=== PATIENT | female | born 1965 | race Caucasian/White ===

== ENCOUNTER 2021-10-11 19:35 | Emergency (ER) | payer OTHER, SELFPAY ==
[2021-10-11 19:47] VITALS: BP 143/79; PULSE 87; RESP 18; TEMP 36.8; O2SAT 98
--- NOTE | 2021-10-11 19:59 | ED.URI ---
HPI - URI/Sore Throat General Chief Complaint: Upper Respiratory Infection Stated Complaint: cough,sorethroat Time Seen by Provider: 10/11/21 19:51 Source: patient and RN notes reviewed Mode of arrival: ambulatory Limitations: no limitations History of Present Illness HPI Narrative: Patient presents today complaining of hoarseness, rhinorrhea, mildly productive cough, and eye watering and slight itch. Cough began yesterday. The hoarseness and rhinorrhea started this morning. 4 days ago, patient had a sore throat and body aches, but these have since resolved. Denies shortness of breath or fever. Denies history of asthma, COPD, seasonal allergies. She took 1 dose of NyQuil today prior to arrival, which did help her rest. MD elicited complaint: cough and rhinorrhea Related Data Home Medications Medication Instructions Recorded Confirmed Effexor 10/11/21 Januvia 10/11/21 Jardiance 10/11/21 Synthroid 10/11/21 atorvastatin 10/11/21 losartan 10/11/21 Allergies Allergy/AdvReac Type Severity Reaction Status Date / Time lisinopril AdvReac Cough Verified 10/11/21 19:52 Review of Systems Review of Systems: CONSTITUTIONAL: Denies body aches, fever, chills, or sweats. EYES: Denies visual changes, redness, or discharge.+ Eye watering and itching ENT: Denies congestion, sore throat, or otalgia.+ Rhinorrhea, hoarseness CARDIOVASCULAR: Denies chest pain, palpitations, or edema. RESPIRATORY: Denies dyspnea.+ Cough GASTROINTESTINAL: Denies abdominal pain, nausea, vomiting, or diarrhea. GENITOURINARY: Denies dysuria or hematuria. SKIN: Denies rash, itching, or wounds. MUSCULOSKELETAL: Denies back pain, joint pain, or myalgia. NEUROLOGIC: Denies headache, numbness, tingling, or weakness. PSYCH: Denies depression or anxiety. [facility] Past Medical History Medical History (Updated 10/11/21 @ 20:04 by Bhakti Ceja, TENDER COORDINATOR, ) Diabetes Hypothyroidism Comments At time of signature, I have reviewed and agree with nursing past medical, surgical, social and family history unless otherwise noted. Please see nursing chart for further information. There is no relevant family history pertinent to the presenting complaint Exam Narrative: GENERAL: Well-appearing, well-nourished, and in no acute distress. HEAD: Normocephalic, atraumatic. EYES: EOMI. No redness or drainage. Conjunctivae normal. ENT: Mucous membranes pink and moist. Bilateral nasal turbinates are slightly edematous with clear nasal drainage. TMs normal bilaterally. Throat normal with clear postnasal drainage. Voice is slightly hoarse. Uvula midline. NECK: Normal AROM. Supple. No lymphadenopathy. CHEST: No respiratory distress. Clear to auscultation. HEART: Regular rate and rhythm. No murmur appreciated. Normal peripheral pulses. EXTREMITIES: Normal range of motion. No edema. SKIN: Warm, dry, no rash. Capillary refill normal. Normal skin turgor. NEURO: No focal deficits. Alert and oriented x3. Gait steady. PSYCH: Normal affect. No signs of depression or anxiety. Course Course Level of Care: Express Care Visit Vital Signs Vital signs: Vital Signs Temperature 98.2 F 10/11/21 19:47 Pulse Rate 87 10/11/21 19:47 Respiratory Rate 18 10/11/21 19:47 Blood Pressure 143/79 H 10/11/21 19:47 Pulse Oximetry 98 10/11/21 19:47 Temperature 98.2 F 10/11/21 19:47 Pulse Rate 87 10/11/21 19:47 Respiratory Rate 18 10/11/21 19:47 Blood Pressure 143/79 H 10/11/21 19:47 Pulse Oximetry 98 10/11/21 19:47 Reviewed. Pt has been instructed to follow up with her PCP regarding her elevated blood pressure today. MDM - URI/Sore Throat Differential Diagnosis Differential diagnosis: Likely upper respiratory infection, sinusitis, viral infection, bronchitis and other (Laryngitis, seasonal allergies, rhinitis) Critical Care Time Critical Care Time Critical Care Time: No Discharge Plan Discharge Clinical Impression: Laryngitis All
== END 2021-10-11 20:04 | disposition home or self-care (01) ==
PROVIDERS: Emergency Provider Nurse Practitioner
DX: J30.2 Other seasonal allergic rhinitis (principal); J04.0 Acute laryngitis; E11.9 Type 2 diabetes mellitus without complications; E03.9 Hypothyroidism, unspecified
CPT/HCPCS: 99211; G0463

== ENCOUNTER 2023-05-15 09:20 | Emergency (ER) | payer OTHER, SELFPAY ==
--- NOTE | ~2023-05-15 | XR_ITS ---
EXAMINATION: NASAL BONES-3+VIEWS DATE: 05/15/2023 10:09 INDICATION: Nose injury post fall TECHNIQUE: AP and left and right lateral views of the nasal bones were obtained. COMPARISON: None. FINDINGS: Nondisplaced fracture extending transversely across at least one essentially both of the nasal bones appreciated on the lateral projection. There is overlying soft tissue swelling at the bridge of the n ose. Visualized khan of the orbits and paranasal sinuses appear intact. Nasal septum is midline. N o air-fluid levels appreciated within the paranasal sinuses . IMPRESSION: 1. Nondisplaced transverse nasal bone fracture. Reviewed, dictated and finalized at location A. [employer]CHIT[employer]
[2023-05-15 09:32] VITALS: BP 153/87; PULSE 86; RESP 18; TEMP 36.2; O2SAT 97
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
== END 2023-05-15 10:40 | disposition home or self-care (01) ==
PROVIDERS: Emergency Provider Nurse Practitioner
DX: S02.2XXA Fracture of nasal bones, initial encounter for closed fracture (principal); W01.198A Fall on same level from slipping, tripping and stumbling with subsequent striking against other object, initial encounter; Z79.84 Long term (current) use of oral hypoglycemic drugs; E11.9 Type 2 diabetes mellitus without complications; E03.9 Hypothyroidism, unspecified
CPT/HCPCS: 70160; 99213; G0463

== ENCOUNTER 2024-11-06 17:44 | Emergency (ER) | payer OTHER, SELFPAY ==
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
--- OUTSIDE RECORDS SUMMARY | 2024-11-06 17:48 | XMS_ITS | Continuity of Care Document ---
Author Name [facility] Organization [facility] Care Team Providers Care Instant Print Operator Name Role Phone [facility] Unavailable Unavailable Problems Combined list of problems from Department of Defense and Veterans Affairs facilities. It does not include entries that were removed or entered in error. Problem Status Onset Date Problem Type Date of Resolution Comments Source Type 2 diabetes mellitus without complications Active 08/30/19 16 Condition DoD Type 2 diabetes mellitus without complication Active 08/30/19 16 Condition 6130C-Af- C-375Th Medgr[facility]Sc manfred MED EXAM NEC-ADMIN PURP Active Condition [facility] Type 2 diabetes mellitus with hyperglycemia Active Condition DoD Vitamin D deficiency, unspecified Active Condition DoD Ocular pain, left eye Active Condition DoD joint pain, localized Inactive Condition DoD obesity Active Condition DoD the time between periods has increased (oligomenorrhea) Active Condition DoD prediabetes Active Condition DoD diabetes mellitus Active Condition DoD hyperglycemia Active Condition DoD hypokalemia Inactive Condition DoD dermatophytosis nails onychomycosis Active Condition DoD Patient Education - Medication Adverse Reactions Active Condition DoD Cerv Pap Smear (+) Atyp Squamous Cells Undetermined Signif Active Condition DoD visit for: screening exam for malignant neoplasm cervix Inactive Condition DoD generalized anxiety disorder Active Condition DoD ACP Staging Stage 2 Hypertension: Greater Than Or = 160/100 Active Condition DoD visit for: issue repeat prescription for medication Inactive Condition DoD visit for: issue repeat prescription Inactive Condition DoD visit for: single system exam gynecological Inactive Condition DoD visit for: routine adult H&P Inactive Condition DoD visit for: administrative purpose Inactive Condition DoD adjustment disorder with anxiety Active Condition DoD reactive hypertension Active Condition DoD Patient Education Inactive Condition DoD hypothyroidism Active Condition Refil led med, and checked yearly labs. Will follow up closely prn. Also asked pt to take home BP's and rtc for discussion if she is near 140/90 on two or more occasions. She agrees to this plan. 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 will also give pt tetanus booster since she has an unknown last immunization and our records say she is due now. PT to f/u for worsening d/c or erythema or pain. [facility] Adjustment disorder with anxious mood Active Condition 6130C-A f- C-375Th [facility] manfred Astigmatism Active Condition 6130C-Af- C-375Th Medgrp-Sc manfred Atypical squamous cells of undetermined significance on cervical Papanicolaou smear Active Condition 6130C- Af- C-375Th Medgrp-Sc manfred Degeneration of iris Active Condition 6130C-Af- C-375Th Medgr[facility]-Sc manfred Diabetes mellitus Active Condition 6130 C-Af- C-375Th Medgrp-Sc manfred Generalized anxiety disorder Active Condition 6130C-Af- C-375Th Medgr[facility]Sc manfred Hyperglycemia Active Condition 6130C-Af - C-375Th Medgr[facility]-Sc manfred Hyperglycemia due to type 2 diabetes mellitus Active Condition 6130C-Af- C-375Th Medgr[facility]-Sc manfred Hypertensive disorder1 Active Condition Outside Source Comment: bp controlled follow up in 2-3 months 6130C-Af- C-375Th Medgr[facility]-Sc manfred Hypothyroidism2 Active Condition Outs sandee Source Comment: Refilled med, and checked yearly labs. Will follow up closely prn. Also asked pt to take home BP's and rtc for discussion if she is near 140/90 on two or more occasions. She agrees to this plan. 6130C-Af- C-375Th Medgr[facility]-Sc manfred Myopia Active Condition 6130C-Af- C-375Th Medgrp-Sc mafnred Obesity Active Condition 6130C-Af- C-375Th Medgr[facility]-Sc manfred Onychomycosis Active Condition 6130C-Af - C-375Th Medgrp-Sc manfred Vitamin D deficiency Active Condition 6130C-Af- C-375Th Medgrp-Sc manfred Medications Combined list of outpatient medications from Department of Defense and Veterans Affairs facilities.Medications provided include 1) outpatient medications from the last 15 months, and 2) patient-reported medications. Medication Details Route Status Patient Instructions Prescription Expires Prescription Number Last Dispense Date Ordering Provider Order Date Order Qty Source amoxicillin -clav 875 mg-125 mg tablet 875 mg, Oral, every 12 hr, # 14 EA, 0 total refill(s ), Hard Stop Oral (given by mouth) Discont inued 05/21/2023 3 2022 14.0 Ambulat ory Pharmac y amoxicillin -clavulanat e 875 mg-125 mg oral tablet 2 Unknown, Unknown, 0 Refill(s ), 0 total refill(s ), Soft Stop Discont inued 05/21/20232022 6130C-A f-C-375 Th [facility] atorvastati n 20 mg oral tablet 2 Unknown, Unknown, 1 Refill(s ), 0 total refill(s ), Soft Stop Discont inued 09/19/20232023 6130C-A f-C-375 Th [facility] atorvastati n 20 mg oral tablet 1 tab(s), Oral, Daily, 2 Unknown, Unknown, 1 Refill(s ), # 90 tab(s), 3 total refill(s ), [facility], Pharmacy : [facility] Oral (given by mouth) Discont inued 07/29/2024 4 2024 90.0 6130C-A f-C-375 Th Medgr[facility]- [facility] atorvastati n 20 mg oral tablet 90 tab(s), 0 Refill(s ), 0 total refill(s ), Soft Stop Discont inued 05/21/20232022 6130C-A f-C-375 Th [facility] atorvastati n 20 mg oral tablet 1 tab(s), Oral, Daily, 2 Unknown, Unknown, 1 Refill(s ), # 90 tab(s), 3 total refill(s ), [facility], Pharmacy : [facility] Oral (given by mouth) Ordered 5 2024 90.0 6130C-A f-C-375 Th Med[facility] atorvastati n 20 mg tablet See Instruct ions, # 90 EA, 3 total refill(s ), Acute Complet ed 09/03/2023 3 2023 90.0 Ambulat ory Pharmac y EMPAGLIFLOZ IN 25 MG ORAL TAB Check with your doctor before becoming . 09/18/2024 [id number] 4 2023 90 [facility] CARDENAS ([facility]) Freestyle 28g lancets [100EA] See dose instruct ions in comments , # 300 EA, 1 total refill(s ), Acute Complet ed 09/03/2023 3 2023 300.0 Ambulat ory Pharmac y freestyle lite (glucose) test strip [50EA] See dose instruct ions in comments , # 100 EA, 3 total refill(s ), Acute Complet ed 09/03/2023 3 2023 100.0 Ambulat ory Pharmac y isopropyl alcohol 70% topical pad 70 Unknown, TOPICAL, 0 Refill(s ), 0 total refill(s ), Soft Stop, Supply Ordered 2022 6130C-A f-C-375 Th [facility] Janumet XR 1000 mg-50 mg tablet See Instruct ions, # 90 EA, 3 total refill(s ), Acute Complet ed 09/03/2023 3 2023 90.0 Ambulat ory Pharmac y Janumet XR 50 mg-1000 mg oral tablet, extended release 2 tab(s), Oral, every evening, 90 unknown unit, 0 Refill(s ), # 180 tab(s), 3 total refill(s ), [facility], Pharmacy : [facility] Oral (given by mouth) Discont inued 07/29/2024 4 2024 180.0 6130C-A f-C-375 Th [facility] Janumet XR 50 mg-1000 mg oral tablet, extended release 90 unknown unit, 0 Refill(s ), 0 total refill(s ), Soft Stop Discont inued 09/19/20232023 6130C-A f-C-375 Th [facility] Janumet XR 50 mg-1000 mg oral tablet, extended release 2 tab(s), Oral, every evening, 90 unknown unit, 0 Refill(s ), # 180 tab(s), 3 total refill(s ), [facility], Pharmacy : [facility] Oral (given by mouth) Ordered 5 2024 180.0 6130C-A f-C-375 Th [facility] Jardiance 10 mg oral tablet 10 Unknown, ORAL, 0 Refill(s ), 0 total refill(s ), Soft Stop Discont inued 05/21/20232022 6130C-A f-C-375 Th [facility] Jardiance 25 mg oral tablet 2 Unknown, Unknown, 1 Refill(s ), 0 total refill(s ), Soft Stop Discont inued 09/19/20232023 6130C-A f-C-375 Th [facility] Jardiance 25 mg oral tablet 1 tab(s), Oral, every morning, 2 Unknown, Unknown, 1 Refill(s ), # 90 tab(s), 3 total refill(s ), [facility], Pharmacy : [facility] Oral (given by mouth) Discont inued 07/29/2024 4 2024 90.0 6130C-A f-C-375 Th [facility] Jardiance 25 mg oral tablet 90 tab(s), 0 Refill(s ), 0 total refill(s ), Soft Stop Discont inued 05/21/20232022 6130C-A f-C-375 Th [facility] Jardiance 25 mg oral tablet 1 tab(s), Oral, every morning, 2 Unknown, Unknown, 1 Refill(s ), # 90 tab(s), 3 total refill(s ), [facility], Pharmacy : [facility] Oral (given by mouth) Ordered 5 2024 90.0 6130C-A f-C-375 Th [facility] Jardiance 25 mg tablet See dose instruct ions in comments , # 90 EA, 3 total refill(s ), Acute Complet ed 09/03/2023 3 2023 90.0 Ambulat ory Pharmac y levothyroxi ne (Synthroid) 75 mcg tablet See dose instruct ions in comments , # 90 EA, 3 total refill(s ), Acute Complet ed 09/03/2023 3 2023 90.0 Ambulat ory Pharmac y Levothyroxi ne Sodium (Levothroid ) Tablet 75 mcg Oral Take on empty stomach. Take with plenty of water.Be careful if taking OTCs.Christ e or use exactly as directed . 09/18/2024 [id number] 4 [address] [place] [address] ([facility]) losartan (U/D) 25 MG ORAL TAB Be careful if taking OTCs.Christ e or use exactly as directed .Do not take if . 09/18/2024 [id number] 4 [address] [place] [address] ([facility]) losartan 25 mg oral tablet 2 Unknown, Unknown, 1 Refill(s ), 0 total refill(s ), Soft Stop Discont inued 09/19/20232023 6130C[facility]A [facility] 25 mg oral tablet 1 tab(s), Oral, Daily, 2 Unknown, Unknown, 1 Refill(s ), # 90 tab(s), 3 total refill(s ), [facility], Pharmacy : [facility] Oral (given by mouth) Discont inued 07/29/2024 4 2024 90.0 6130C-A f-C-375 [facility] losartan 25 mg oral tablet 90 tab(s), 0 Refill(s ), 0 total refill(s ), Soft Stop Discont inued 05/21/20232022 6130C-A f-C-375 [facility] losartan 25 mg oral tablet 1 tab(s), Oral, Daily, 2 Unknown, Unknown, 1 Refill(s ), # 90 tab(s), 3 total refill(s ), [facility], Pharmacy : [facility] Oral (given by mouth) Ordered 5 2024 90.0 6130C-A f-C-375 Th [facility] losartan 25 mg tablet See dose instruct ions in comments , # 90 EA, 3 total refill(s ), Acute Complet ed 09/03/2023 3 2023 90.0 Ambulat ory Pharmac y metFORMIN 1000 mg oral tablet 1000 Unknown, ORAL, 0 Refill(s ), 0 total refill(s ), Soft Stop Complet ed 05/21/20232022 6130C-A brit-C-375 Th Medgr[facility]- [facility] miscellaneo us medication 300 unknown unit, 0 Refill(s ), 0 total refill(s ), Soft Stop Discont inued 05/21/20232022 6130C-A f-C-375 Th [facility] Sitagliptin 50mg + Metformin Hydrochlori de 1000mg, 24 Hour Extended Release Tablet, Oral Do not drink alcohol. Take with food/mil k.Swallo w whole.Do not chew or crush. 09/18/2024 [id number] 4 2023 180 [facility] ([facility]) Synthroid 75 mcg oral tablet 2 Unknown, Unknown, 1 Refill(s ), 0 total refill(s ), Soft Stop Discont inued 09/19/20232023 6130C-A brit-C-375 Th [facility] Synthroid 75 mcg oral tablet 1 tab(s), Oral, Daily, 2 Unknown, Unknown, 1 Refill(s ), # 90 tab(s), 3 total refill(s ), [facility], Pharmacy : [facility] Oral (given by mouth) Discont inued 07/29/2024 4 2024 90.0 6130C-A f-C-375 Th [facility] Synthroid 75 mcg oral tablet 90 tab(s), 0 Refill(s ), 0 total refill(s ), Soft Stop Discont inued 05/21/20232022 6130C-A -C-375 Th [facility] Synthroid 75 mcg oral tablet 1 tab(s), Oral, Daily, 2 Unknown, Unknown, 1 Refill(s ), # 90 tab(s), 3 total refill(s ), [facility], Pharmacy : [facility] Oral (given by mouth) Ordered 5 2024 90.0 6130C-A -C[facility]375 [facility] traMADol 50 mg oral tablet 15 tab(s), 0 Refill(s ), 0 total refill(s ), Soft Stop Complet ed 09/19/20232023 6130C-A f-C-375 Th [facility] traMADol 50 mg oral tablet 2 Unknown, Unknown, 0 Refill(s ), 0 total refill(s ), Soft Stop Discont inued 05/21/20232022 6130C-A f-C-375 Th [facility] traMADol 50 mg tablet 50 mg, Oral, every 6 hr, # 15 EA, 0 total refill(s ), Hard Stop Oral (given by mouth) Complet ed 09/19/2023 3 2023 15.0 Ambulat ory Pharmac y VENLAFAXINE 50 MG ORAL TAB May cause drowsine ss.Do not drink alcohol. Take with food/mil k.Take or use exactly as directed . 09/18/2024 [id number] 4 2023 180 [facility] ([facility]) venlafaxine 50 mg oral tablet 2 Unknown, Unknown, 1 Refill(s ), 0 total refill(s ), Soft Stop Discont inued 09/19/20232023 6130C-A -C-375 [facility] venlafaxine 50 mg oral tablet 1 tab(s), Oral, BID, 2 Unknown, Unknown, 1 Refill(s ), # 180 tab(s), 3 total refill(s ), [facility], Pharmacy : [facility] Oral (given by mouth) Discont inued 07/29/2024 4 2024 180.0 6130C-A f-C-375 [facility] venlafaxine 50 mg oral tablet 90 tab(s), 0 Refill(s ), 0 total refill(s ), Soft Stop Discont inued 05/21/20232022 6130C-A f-C-375 Th [facility] venlafaxine 50 mg oral tablet 1 tab(s), Oral, BID, 2 Unknown, Unknown, 1 Refill(s ), # 180 tab(s), 3 total refill(s ), [facility], Pharmacy : [facility] Oral (given by mouth) Ordered 5 2024 180.0 6130C-A f-C-375 Th [facility] venlafaxine 50 mg tablet See Instruct ions, # 90 EA, 3 total refill(s ), Acute Complet ed 09/03/2023 3 2023 90.0 Ambulat ory Pharmac y Allergies, Adverse Reactions, Alerts Combined list of allergies from Department of Defense and Veterans Affairs facilities. It does not include entries that were removed or entered in error. Substance Category Reaction Severity Reaction type Status Date Reported Comments Source lisinopril Propensity to adverse reactions to drug Cough Active 2 Unknown Organizatio n LISINOPRIL (LISINOPRIL ) Drug allergy (disorder) Cough active 2 [facility] ([facility]) Immunizations Combined list of available immunizations from the Department of Defense and Veterans Affairs facilities. Immunization Series Date Given Administered By Site Reaction Lot Number CVX Code Drug Manager Functional Status Comments Source pneumococcal 20-valent conjugate vaccine 2023 LENA MORIN Shoul aminata, left (delt oid) [id number] [employer] complet ed pneumococ gretta 20-valent conjugate vaccine 10/03/23 Given 0055C-[facility] zoster vaccine recombinant 1 2022 Unknown, Provider [id number] 187 [employer] alber[employer] (SKB) complet ed zoster vaccine recombina nt DoD zoster vaccine, inactivated 2022 MIN [id number] 187 comple t ed Result Comment: Route: Intramusc ular(IM) Manufactu rer: Milagro das (SKB) 6130C-A f-C-375 Th [facility] COVID-19, mRNA, LNP-S, PF, 100 mcg or 50 mcg dose 2020 ESTEBAN, Moderna US, Inc. (MOD) Not Given COVID-19, mRNA, LNP-S, PF, 100 mcg or 50 mcg dose DoD COVID Vaccine Moderna 2020 KILEYHARRY 207 comple t ed Result Comment: Unit: Unknown Manufactu rer: Moderna [employer] (MOD) 6130C-A f-C-375 Th [facility] influenza, injectable, quadrivalent- pf 2020 zzLef t Arm [id number] 150 GlaxoSmithKli ne complet ed influenza , injectabl e, quadrival ent-pf 05/16/21 Given Ambulat ory Pharmac y Influenza, injectable, quadrivalent, preservative free 1 2020 Unknown, Provider [id number] 150 [facility] (SKB) complet ed Influenza , injectabl e, quadrival ent, preservat zander free DoD COVID Vaccine Moderna 2020 [id number] complet ed COVID Vaccine Moderna 07/21/20 Given Ambulat ory Pharmac y SARS-COV-2 (COVID-19) vaccine, mRNA, spike protein, LNP, preservative free, 100 mcg or 50 mcg dose 2 2020 Unknown, Provider [id number] 207 [employer] (MOD) complet ed SARS-COV- 2 (COVID-19 ) vaccine, mRNA, spike protein, LNP, preservat zander free, 100 mcg or 50 mcg dose DoD COVID Vaccine Moderna 2020 [id number] complet ed COVID Vaccine Moderna 06/22/20 Given Ambulat ory Pharmac y SARS-COV-2 (COVID-19) vaccine, mRNA, spike protein, LNP, preservative free, 100 mcg or 50 mcg dose 1 2020 Unknown, Provider [id number] 207 [employer] (MOD) complet ed SARS-COV- 2 (COVID-19 ) vaccine, mRNA, spike protein, LNP, preservat zander free, 100 mcg or 50 mcg dose DoD influenza, injectable, quadrivalent, preservative free 2019 ALUL, () Not Given influenza , injectabl e, quadrival ent, preservat zander free DoD influenza, injectable, quadrivalent- pf 2019 [facility] 150 comple t ed Result Comment: Unit: Unknown Manufactu rer: () 6130C-A f-C-375 [facility] influenza, injectable, quadrivalent- pf 2018 zzLef t Arm [id number] 150 [employer] complet ed influenza , injectabl e, quadrival ent-pf 04/30/19 Given Ambulat ory Pharmac y Influenza, injectable, quadrivalent, preservative free 1 2018 Unknown, Provider [id number] 150 [employer] (SEQ) complet ed Influenza , injectabl e, quadrival ent, preservat zander free DoD zoster vaccine, inactivated 2017 zzRig ht Arm [id number] 187 GlaxoSmithKli ne complet ed zoster vaccine, inactivat ed 09/26/17 Given Ambulat ory Pharmac y zoster vaccine recombinant 1 2017 Unknown, Provider [id number] 187 [facility] (SKB) complet ed zoster vaccine recombina nt DoD influenza, injectable, quadrivalent 2014 zzRig ht Arm [id number] [employer] complet ed influenza , injectabl e, quadrival ent 08/26/14 Given Ambulat ory Pharmac y pneumococcal polysaccharid e, 23 valent 2014 zzLef t Arm [id number] Merck & Company Inc complet ed pneumococ gretta polysacch aride, 23 valent 08/26/14 Given Ambulat ory Pharmac y tetanus, diphtheria, acellular pertu is 2014 zzLef t Arm [id number] 115 GlaxoSmithKli ne complet ed tetanus, diphtheri a, acellular pertussis 08/26/14 Given Ambulat ory Pharmac y pneumococcal polysaccharid e vaccine, 23 valent 1 2014 Unknown, Provider [id number] Merck (MSD) complet ed pneumococ gretta polysacch aride vaccine, 23 valent DoD tetanus toxoid, reduced diphtheria toxoid, and acellular pertu is vaccine, adsorbed 1 2014 Unknown, Provider [id number] 115 [employer] (SKB) complet ed tetanus toxoid, reduced diphtheri a toxoid, and acellular pertussis vaccine, adsorbed DoD influenza, injectable, quadrivalent, contains preservative 1 2014 Unknown, Provider [id number] (IDB) complet ed influenza , injectabl e, quadrival ent, contains preservat zander DoD influenza, live, intranasal,qu adrivalent 2012 [id number] 149 Medimmune Inc comple t ed influenza , live, intranasa l,quadriv alent 05/14/13 Given Ambulat ory Pharmac y influenza, live, intranasal, quadrivalent 6 2012 Unknown, Provider [id number] 149 MedImmune, Inc. (MED) complet ed influenza , live, intranasa l, quadrival ent DoD influenza, seasonal, injectable-pf 2010 zzL t Arm [id number] 140 sanofi pasteur complet ed influenza , seasonal, injectabl e-pf 04/05/11 Given Ambulat ory Pharmac y Influenza, seasonal, injectable, preservative free 1 2010 Unknown, Provider [id number] 140 Sanofi Pasteur (PMC) complet ed Influenza , seasonal, injectabl e, preservat zander free DoD tetanus-dipht h toxoids (Td) adult/adol 2004 zzL t Arm [id number] 09 sanofi pasteur complet ed tetanus-d iphth toxoids (Td) adult/ado l 11/26/04 Given Ambulat ory Pharmac y tetanus and diphtheria toxoids, adsorbed, preservative free, for adult use (2 Lf of tetanus toxoid and 2 Lf of diphtheria toxoid) 1 2004 Unknown, Provider [id number] 09 Sanofi Pasteur (PMC) complet ed tetanus and diphtheri a toxoids, adsorbed, preservat zander free, for adult use (2 Lf of tetanus toxoid and 2 Lf of diphtheri a toxoid) [facility] influenza virus vaccine, live 2004 [id number] Medimmune Inc comple t ed influenza virus vaccine, live 07/09/04 Given Ambulat ory Pharmac y influenza virus vaccine, live, attenuated, for intranasal use 1 2004 Unknown, Provider [id number] 111 MedImmune, Inc. (MED) complet ed influenza virus vaccine, live, attenuate d, for intranasa l use [facility] influenza virus vaccine,split 2002 [id number] Novartis [employer] complet ed influenza virus vaccine,s plit 04/28/03 Given Ambulat ory Pharmac y influenza virus vaccine, split virus (incl. purified surface antigen)-reti red CODE 1 2002 Unknown, Provider [id number] 15 Sonny (EVN) complet ed influenza virus vaccine, split virus (incl. purified surface antigen)- retired CODE DoD influenza virus vaccine, unspecified 2001 [id number] 88 sanofi pasteur complet ed influenza virus vaccine, unspecifi ed 04/24/02 Given Ambulat ory Pharmac y influenza virus vaccine, unspecified formulation 1 2001 Unknown, Provider [id number] 88 Sanofi Pasteur (PMC) complet ed influenza virus vaccine, unspecifi ed formulati on DoD influenza virus vaccine,split 2000 [id number] 15 sanofi pasteur complet ed influenza virus vaccine,s plit 05/09/01 Given Ambulat ory Pharmac y influenza virus vaccine, split virus (incl. purified surface antigen)-reti red CODE 1 2000 Unknown, Provider [id number] 15 Sanofi Pasteur (PMC) complet ed influenza virus vaccine, split virus (incl. purified surface antigen)- retired CODE DoD hepatitis A adult vaccine 1997 52 complet ed hepatitis A adult vaccine 09/22/97 Given Ambulat ory Pharmac y meningococcal polysaccharid e (MPSV4) 1997 32 complet ed meningoco ccal polysacch aride (MPSV4) 09/22/97 Given Ambulat ory Pharmac y meningococcal polysaccharid e vaccine (MPSV4) 1 1997 Unknown, Provider 32 Transcribed (TRS) complet ed meningoco ccal polysacch aride vaccine (MPSV4) DoD hepatitis A vaccine, adult dosage 2 1997 Unknown, Provider 52 Transcribed (TRS) complet ed hepatitis A vaccine, adult dosage DoD tuberculin purified protein derivative 1997 96 complet ed Patient Tolerance : Negative Ambulat ory Pharmac y tuberculin skin test; purified protein derivative solution, intradermal 1 1997 Unknown, Provider 96 Transcribed (TRS) complet ed tuberculi n skin test; purified protein derivativ e solution, intraderm al DoD hepatitis A adult vaccine 1996 52 complet ed hepatitis A adult vaccine 08/05/96 Given Ambulat ory Pharmac y hepatitis A vaccine, adult dosage 1 1996 Unknown, Provider 52 Transcribed (TRS) complet ed hepatitis A vaccine, adult dosage DoD hepatitis B adult vaccine 1994 43 complet ed hepatitis B adult vaccine 03/07/95 Given Ambulat ory Pharmac y hepatitis B vaccine, adult dosage 3 1994 Unknown, Provider 43 Transcribed (TRS) complet ed hepatitis B vaccine, adult dosage DoD HepB, Adult 1994 KILEYSCHLORTT 43 comple t ed Result Comment: Route: Unknown Manufactu rer: Transcrib ed (TRS) 6130C-A f-C-375 [facility] hepatitis B adult vaccine 1994 43 complet ed hepatitis B adult vaccine 08/12/94 Given Ambulat ory Pharmac y hepatitis B vaccine, adult dosage 2 1994 Unknown, Provider 43 Transcribed (TRS) complet ed hepatitis B vaccine, adult dosage DoD HepB, Adult 1994 KILEYSCHLORTT 43 comple t ed Result Comment: Route: Unknown Manufactu rer: Transcrib ed (TRS) 6130C-A f-C-375 Th [facility] hepatitis B adult vaccine 1993 43 complet ed hepatitis B adult vaccine 02/20/94 Given Ambulat ory Pharmac y hepatitis B vaccine, adult dosage 1 1993 Unknown, Provider 43 Transcribed (TRS) complet ed hepatitis B vaccine, adult dosage DoD HepB, Adult 1993 KILEYSCHLORTT 43 comple t ed Result Comment: Route: Unknown Manufactu rer: Transcrib ed (TRS) 6130C-A f-C-375 Th [facility] measles/mumps /rubella virus vaccine 1991 03 complet ed measles/m umps/rube lla virus vaccine 09/21/91 Given Ambulat ory Pharmac y measles, mumps and rubella virus vaccine 1 1991 Unknown, Provider 03 Transcribed (TRS) complet ed measles, mumps and rubella virus vaccine DoD poliovirus vaccine, live, oral 1985 02 complet ed polioviru s vaccine, live, oral 07/15/85 Given Ambulat ory Pharmac y trivalent poliovirus vaccine, live, oral 1 1985 Unknown, Provider 02 Transcribed (TRS) complet ed trivalent polioviru s vaccine, live, oral DoD Results Combined list of recent chemistry, hematology and other laboratory results from [facility] and [facility], ranging from 15 months to all on record, depending upon the facility. Order Name Results Value Reference Range Date Interpretation Specimen Comments Source Chemistr y eGFR CKD EPI 85 mL/min/1 .73_m2 08/06 Interpretiv e Data: Estimated Glomerular Filtration Rate (eGFR) calculated using the 2020 Chronic Kidney Disease-Epi demiology (CKD-EPI) Collaborati on creatinine equation; units of measure are mL/min/1.73 m2. Results are only valid for adults (>=18 years) whose serum creatinine is in steady state. eGFR calculation s are not valid for patients with acute kidney injury and for patients on dialysis. Creatinine- based estimates of kidney function may also be inaccurate in patients with reduced creatinine generation due to decreased muscle mass (e.g., malnutritio n, severe hypoalbumin emia, sarcopenia, chronic neuromuscul ar disease, amputations , severe heart failure or liver disease) and in patients with increased creatinine generation due to increased muscle mass (e.g., muscle builders, anabolic steroids) or increased dietary intake. CKD is diagnosed based on abnormaliti es of kidney structure or function, present for >3 months, with implication s for health and disease. CKD is classified and staged based on cause, eGFR and albuminuria (quantified as urine albumin to creatinine ratio). An eGFR >60 mL/min/1.73 m2 in the absence of increased urine albumin excretion or structural abnormaliti es does not CKD. eGFR provides only an estimate of measured GFR within +/- 30% for most patients. As mentioned, nutritional status and muscle mass, among many factors, may lead to inaccuracy in the estimate. Consider ordering the creatinine- cystatin C panel if better accuracy is needed for clinical decision-maria isabel aleman. eGFR (mL/min/1.7 3 m2) CKD stage Interpretat ion Normal 60-89 Mild decrease 45-59 Mild to moderate decrease 30-44 Moderate to severe decrease 15-29 Severe decrease <15 Kidney failure [facility] Chemistr y eAvg Glucose 166 mg/dL 08/06 [facility] Chemistr y Hemoglobin A1c 7.4 % 4.0 - 5.6 08/06 H Interpretiv e Data: Normal: 4.0 - 5.6% Increased Risk: 5.7 - 6.4% Diabetic Range: 6.5% For patients without diabetes, the normal range for the hemoglobin A1c test is between 4% and 5.6%. Hemoglobin A1c levels between 5.7% and 6.4% indicate increased risk of diabetes, and levels of 6.5% or higher indicate diabetes. Because studies have repeatedly shown that out-of-cont rol diabetes results in complicatio ns from the disease, the goal for people with diabetes is a hemoglobin A1c less than 7%. The higher the hemoglobin A1c, the higher the risks of developing complicatio ns related to diabetes. If confirmatio n is needed, consider recalling the patient and ordering Hemoglobin Electrophor esis. [facility] Chemistr y BUN 14 mg/dL 7 - 20 08/06 N [facility] Chemistr y BUN/Creat Ratio 18 mg/dL 12 - 08/06 N [facility] Chemistr y Bilirubin Total 0.5 mg/dL 0.2 - 1.2 08/06 N [facility] Chemistr y Chloride 101 mmol/L 98 - 107 08/06 N [facility] Chemistr y Calcium 9.9 mg/dL 8.4 - 10.2 08/06 N [facility] Chemistr y CO2 30 mmol/L 22 - 29 08/06 H [facility] Chemistr y Glucose Lvl 257 mg/dL 74 - 99 08/06 H [facility] Chemistr y Albumin 4.00 g/dL 3.50 - 5.20 08/06 N [facility] Chemistr y Potassium Lvl 4.4 mmol/L 3.5 - 5.1 08/06 N [facility] Chemistr y AGAP 9.00 0.00 - 15.00 08/06 N [facility] Chemistr y Creatinine Level 0.80 mg/dL 0.57 - 1.11 08/06 N [facility] Chemistr y AST 12 U/L 5 - 34 08/06 N th [facility] Chemistr y Protein Total 7.3 g/dL 6.4 - 8.3 08/06 N -375 [facility] Chemistr y Alk Phos 101 U/L 40 - 150 08/06 N - [facility] Chemistr y ALT 12 U/L 5 - 55 08/06 N - [facility] Chemistr y Sodium 140 mmol/L 136 - 145 08/06 N [facility] Immunolo gy/Serol ogy Hep C Ab Negative 7 (08/06/24 1:45 PM) Negative 08/06 N Interpretiv e Data: NEGATIVE - Antibodies to HCV were not detected; does not exclude the possibility of exposure to HCV. PRESUMPTIVE POSITIVE - Presumptive evidence of antibodies to HCV. Follow CDC recommendat ions for supplementa l testing. Refer to updated guidance Testing HCV Infection: An Update of Guidance for Clinicians and Laboratoria ns for additional information and recommended HCV testing algorithm (Centers for Disease Control and Prevention, MMWR Early Release / Vol. 62 / October 13, 2012). Notifiable result/cond ition for Local/State PH department, notify your local public health immediately for proper notificatio n. Testing performed by [employer]. [employer] EPILAB Immunolo gy/Serol ogy Hep A Ab Positive 12 (08/06/24 1:45 PM) Negative 08/06 N Interpretiv e Data: NEGATIVE: Indicates susceptibil ity to Hepatitis A Infection. EQUIVOCAL: It is recommended that a specimen be drawn in two weeks and retested. POSITIVE: Indicates prior or acute infection, or immunizatio n to Hepatitis A. This assay does not distinguish among different classes of antibodies. The assay cannot be used to determine if a positive sample is due to an acute infection or is the result of a previous infection. The sample should be tested in a specific HAV IgM assay if the overall clinical picture is indicative of an ongoing, acute or recent infection. Testing performed by electrochem [employer]. [id number] FSAM EPILAB Immunolo gy/Serol ogy Hep A Ab IgM Negative 5 (08/06/24 1:45 PM) Negative 08/06 N Interpretiv e Data: NEGATIVE: Negative for IgM antibodies to Hepatitis A Virus. EQUIVOCAL: Indetermina te, repeat testing with new specimen is recommended . POSITIVE: Positive for IgM antibodies to Hepatitis A Virus Because tests may have false-posit zander results, do not rely on any single test result as the sole determinate in diagnosing Hepatitis A. The clinical case definition for acute Hepatitis A is, An acute illness with a) discrete onset of symptoms and b) jaundice or elevated serum aminotransf erase levels. Symptoms of Hepatitis A include fatigue, abdominal pain, loss of appetite, intermitten t nausea, vomiting, diarrhea and fever. Notifiable result/cond ition for Local/[facility] department, notify your local public health immediately for proper notificatio n. The performance characteris tics of this assay have not been evaluated for use in pediatric populations . Testing performed by [employer]. [employer] FSAM EPILAB Immunolo gy/Serol ogy Hep B Core Ab Negative 14 (08/06/24 1:45 PM) Negative 08/06 N Interpretiv e Data: NEGATIVE: Antibodies to HBc were not detected; does not exclude the possibility of exposure to HBV. POSITIVE: Presumptive evidence of antibodies to HBc. Follow CDC recommendat ions for supplementa l testing. The performance characteris tics of this assay have not been evaluated for use in pediatric populations . Testing performed by electrochem iluminescen ce immunoassay . [employer] FSAM EPILAB Immunolo gy/Serol ogy Hep B Surface Ag Negative 10 (08/06/24 1:45 PM) Negative 08/06 N Interpretiv e Data: NEGATIVE: Specimen is negative for HBsAg. CONFIRM INDICATED: Specimen is presumptive positive for HBsAg. Result will be confirmed with a neutralizat ion assay. Testing performed by electrochem iluminescen ce immunoassay . Any laboratory test result should be interpreted in conjunction with the patient's clinical presentatio n and the results of other diagnostic tests. A negative result on a given laboratory assay does not by itself rule out the possibility of infection. Notifiable result/cond ition for Local/[facility] department, notify your local public health immediately for proper notificatio n. [employer] FSAM EPILAB Immunolo gy/Serol ogy Hep B Surface Ab Positive 11 (08/06/24 1:45 PM) Negative 08/06 N Interpretiv e Data: NEGATIVE: Individual is considered to be not immune to infection with HBV. EQUIVOCAL: Unable to determine if anti-HBs is present at levels consistent with immunity. The individual should be further assessed by associated risk factors and the use of additional diagnostic information . Another specimen may be collected and tested. POSITIVE: Anti-HBs concentrati on detected at > 10 mIU/mL. Individual is considered to be immune to infection with HBV. The performance characteris tics of this assay have not been evaluated for use in pediatric populations . Testing performed by electrochem [employer]. [employer] FSAM EPILAB Chemistr y TSH 3.430 mIU/L 0.270 - 4.200 12/17 N Interpretiv e Data: Recommend: TPO/Thyrope roxidase Antibody when TSH result is > 4.2 uIU/mL [employer] FSAM EPILAB Chemistr y eAvg Glucose 137 mg/dL 12/17 [facility] Chemistr y Hemoglobin A1c 6.4 % 4.0 - 5.6 12/17 H Interpretiv e Data: Normal: 4.0 - 5.6% Increased Risk: 5.7 - 6.4% Diabetic Range: 6.5% For patients without diabetes, the normal range for the hemoglobin A1c test is between 4% and 5.6%. Hemoglobin A1c levels between 5.7% and 6.4% indicate increased risk of diabetes, and levels of 6.5% or higher indicate diabetes. Because studies have repeatedly shown that out-of-cont rol diabetes results in complicatio ns from the disease, the goal for people with diabetes is a hemoglobin A1c less than 7%. The higher the hemoglobin A1c, the higher the risks of developing complicatio ns related to diabetes. If confirmatio n is needed, consider recalling the patient and ordering Hemoglobin Electrophor esis. [facility] Immunolo gy/Serol ogy _HCV Interp 1 LC COMMENT 12/17 Result Comment: Not infected with HCV unless early or acute infection is suspected (which may be delayed in an immunocompr omised individual) , or other evidence exists to indicate HCV infection. Performed At: [facility] [address] [place], [place] [id number] Shruti Saldivar PhD Ph:[phone] zzIOC Standard Infectio us Disease HCV Ab LC Non Reactive 12/17 Result Comment: Performed At: [id number] [place], [place] [id number] Shruti Saldivar PhD Ph:[phone] [facility] Chemistr y Hemoglobin A1c 7.9 % 4.0 - 5.6 09/11 H Interpretiv e Data: Normal: 4.0 - 5.6% Increased Risk: 5.7 - 6.4% Diabetic Range: 6.5% For patients without diabetes, the normal range for the hemoglobin A1c test is between 4% and 5.6%. Hemoglobin A1c levels between 5.7% and 6.4% indicate increased risk of diabetes, and levels of 6.5% or higher indicate diabetes. Because studies have repeatedly shown that out-of-cont rol diabetes results in complicatio ns from the disease, the goal for people with diabetes is a hemoglobin A1c less than 7%. The higher the hemoglobin A1c, the higher the risks of developing complicatio ns related to diabetes. If confirmatio n is needed, consider recalling the patient and ordering Hemoglobin Electrophor esis. [facility] Chemistr y eAvg Glucose 180 mg/dL 09/11 [facility] Chemistr y Albumin 4.00 g/dL 3.50 - 5.20 09/11 N [facility] Chemistr y Glucose Lvl 140 mg/dL 74 - 99 09/11 H [facility] Chemistr y Creatinine Level 0.70 mg/dL 0.57 - 1.11 09/11 N [facility] Chemistr y ALT 11 U/L 5 - 55 09/11 N [facility] Chemistr y Alk Phos 96 U/L 40 - 150 09/11 N [facility] Chemistr y Potassium Lvl 4.6 mmol/L 3.5 - 5.1 09/11 N [facility] Chemistr y CO2 26 mmol/L 22 - 29 09/11 N [facility] Chemistr y AGAP 9.00 0.00 - 15.00 09/11 N [facility] Chemistr y Calcium 9.7 mg/dL 8.4 - 10.2 09/11 N [facility] Chemistr y BUN/Creat Ratio 21 mg/dL 12 - 20 09/11 H [facility] Chemistr y Chloride 104 mmol/L 98 - 107 09/11 N [facility] Chemistr y Bilirubin Total 0.8 mg/dL 0.2 - 1.2 09/11 N [facility] Chemistr y AST 13 U/L 5 - 34 09/11 N [facility] Chemistr y Protein Total 7.1 g/dL 6.4 - 8.3 09/11 N [facility] Chemistr y BUN 15 mg/dL 7 - 20 09/11 N [facility] Chemistr y Sodium 139 mmol/L 136 - 145 09/11 N [facility] Chemistr y Triglyceri lolis 73 mg/dL 7 - 149 09/11 N Interpretiv e Data: AGES 0-9: Desirable: < 75 mg/dL Borderline High: 75-99 mg/dL High: >/= 100 mg/dL AGES 10-19: Desirable: < 90 mg/dL Borderline High: 90-129 mg/dL High: >/= 130 mg/dL ADULTS: Desirable: < 150 mg/dL Borderline High: 150-199 mg/dL High: >/= 240 mg/dL Very High: >/= 500 mg/dL [facility] Chemistr y Cholestero l Total 143 mg/dL 09/11 N Interpretiv e Data: According to the [employer] : AGES 0-19: Desirable: < 170 mg/dL Borderline High: 170-199 mg/dL High Blood Cholesterol : >/= 200 mg/dL ADULTS: Desirable < 200 mg/dL Borderline High: 200-239 mg/dL High Blood Cholesterol : >/= 240 mg/dL [facility] Chemistr y Chol/HDL 3 mg/dL 09/11 [facility] Chemistr y LDL 71 mg/dL 100 - 130 09/11 L Interpretiv e Data: AGES 0-19: Desirable: < 110 mg/dL Borderline High: 110-129 mg/dL High: >/= 130 mg/dL ADULTS: Desirable: <100 mg/dL Near/above optimal: 100-130 mg/dL Borderline High: 131-159 mg/dL High: 160-189 mg/dL Very High: 190 mg/dL [facility] Chemistr y HDL Cholestero l 55 mg/dL 40 - 59 09/11 N Interpretiv e Data: HDL (HIGH DENSITY LIPOPROTEIN ): ADULTS: Low: < 40 mg/dL High: >/= 60 mg/dL AGES 0 -19: Low: < 40 mg/dL Borderline Low: 40 - 45 mg/dL Acceptable: > 45 mg/dL [facility] Chemistr y LDL/HDL 1 09/11 [facility] Chemistr y Ur Microalbum in 8 mg/L 09/11 N Interpretiv e Data: To minimize intra-indiv idual variation, analysis of three random urine samples collected over the course of a week has also been recommended . [facility] Chemistr y eGFR CKD EPI 100 mL/min/1 .73_m2 09/11 Interpretiv e Data: Estimated Glomerular Filtration Rate (eGFR) calculated using the 2020 Chronic Kidney Disease-Epi demiology (CKD-EPI) Collaborati on creatinine equation; units of measure are mL/min/1.73 m2. Results are only valid for adults (>=18 years) whose serum creatinine is in steady state. eGFR calculation s are not valid for patients with acute kidney injury and for patients on dialysis. Creatinine- based estimates of kidney function may also be inaccurate in patients with reduced creatinine generation due to decreased muscle mass (e.g., malnutritio n, severe hypoalbumin emia, sarcopenia, chronic neuromuscul ar disease, amputations , severe heart failure or liver disease) and in patients with increased creatinine generation due to increased muscle mass (e.g., muscle builders, anabolic steroids) or increased dietary intake. CKD is diagnosed based on abnormaliti es of kidney structure or function, present for >3 months, with implication s for health and disease. CKD is classified and staged based on cause, eGFR and albuminuria (quantified as urine albumin to creatinine ratio). An eGFR >60 mL/min/1.73 m2 in the absence of increased urine albumin excretion or structural abnormaliti es does not CKD. eGFR provides only an estimate of measured GFR within +/- 30% for most patients. As mentioned, nutritional status and muscle mass, among many factors, may lead to inaccuracy in the estimate. Consider ordering the creatinine- cystatin C panel if better accuracy is needed for clinical decision-maria isabel aleman. eGFR (mL/min/1.7 3 m2) CKD stage Interpretat ion Normal 60-89 Mild decrease 45-59 Mild to moderate decrease 30-44 Moderate to severe decrease 15-29 Severe decrease <15 Kidney failure [facility] Hematolo gy Baso Absolute 0.1 x10^3/mc L 0.0 - 0.1103 09/11 N [facility] Hematolo gy Neutro Absolute 4.7 x10^3/mc L 2.0 - 7.0103 09/11 N [facility] Hematolo gy [place] Absolute 0.6 x10^3/mc L 0.2 - 0.8103 09/11 N [facility] Hematolo gy Monocyte % Auto 9 % 1 - 12 09/11 N [facility] Hematolo gy Neutrophil % Auto 67.5 % 46.0 - 77.0 09/11 N [facility] Hematolo gy Eosinophil % Auto 2 % 0 - 5 09/11 N [facility] Hematolo gy Basophil % Auto 0.9 % 0.0 - 2.5 09/11 N [facility] Hematolo gy Eos Absolute 0.1 x10^3/mc L 0.0 - 0.7103 09/11 N [facility] Hematolo gy Lymphocyte % Auto 20.4 % 20.0 - 40.0 09/11 N [facility] Hematolo gy Lymph Absolute 1.4 x10^3/mc L 1.2 - 4.0103 09/11 N [facility] Hematolo gy WBC 7.0 x10^3/mc L 4.0 - 11.0103 09/11 N [facility] Hematolo gy RDW 13.8 % 11.0 - 14.9 09/11 N [facility] Hematolo gy MCV 85 fL 80 - 97 09/11 N [facility] Hematolo gy MPV 11.3 fL 7.4 - 10.4 09/11 H [facility] Hematolo gy MCH 27 pg 28 - 33 09/11 L [facility] Hematolo gy MCHC 31.5 g/dL 33.0 - 36.5 09/11 L [facility] Hematolo gy Platelets 244.0 x10^3/mc L 150.0 - 450.0103 09/11 N [facility] Hematolo gy RBC 5.6 x10^6/mc L 3.6 - 5.0106 09/11 H [facility] Hematolo gy Differenti al? Auto (09/12/23 8:00 AM) 09/11 N [facility] Hematolo gy Hematocrit 48 % 34 - 46 09/11 H [facility] Hematolo gy Hemoglobin 15.0 g/dL 11.0 - 15.0 09/11 N [facility] Vital Signs Combined list of inpatient and outpatient Vital Signs from [facility] and [facility], ranging from 12 months to all on record, depending upon the facility. Vital Sign Value Date Comments Source Mean Arterial Pressure, Calc 88 mm[Hg] 10/17/2023 12:56:00 4954J-Zs-N-3 [facility] [facility] Peripheral Pulse Rate 71 bpm 10/17/2023 12:56:00 1297R-Yy-L-[facility] Respiratory Rate 16 br/min 10/17/2023 12:56:00 3578H-Oo-D-[facility] Temperature Oral 36.7 Moon 10/17/2023 12:56:00 1582G-Tn-K-[facility] BP Site Left arm 10/17/2023 12:56:00 6130C -Af-C-[facility] Systolic Blood Pressure 121 mm[Hg] 10/17/2023 12:56:00 4843S-Hc-K-[facility] Diastolic Blood Pressure 71 mm[Hg] 10/17/2023 12:56:00 5242X-Oa-R-[facility] Blood Pressure Manual Automatic 10/17/2023 12:56:00 7857W-Lv-E-[facility] Mean Arterial Pressure, Calc 96 mm[Hg] 07/29/2024 14:48:00 1545G-Ip-T-3 [facility] Systolic Blood Pressure 131 1 07/29/2024 14:48:00 3387H-Ud-P-[facility] Diastolic Blood Pressure 78 mm[Hg] 07/29/2024 14:48:00 0090H-Py-D-[facility] Peripheral Pulse Rate 95 bpm 07/29/2024 14:48:00 5197Z-We-N-[facility] BP Site Left arm 07/29/2024 14:48:00 6130C -Af-C-[facility] Blood Pressure Manual Automatic 07/29/2024 14:48:00 7864X-Fz-B-[facility] Blood Pressure Manual Automatic 05/21/2023 14:02:00 0655Z-Nw-S-[facility] BP Site Left arm 05/21/2023 14:02:00 6130C -Af-C-[facility] Temperature Oral 36.8 Moon 05/21/2023 14:02:00 4909X-Ij-I-[facility] Systolic Blood Pressure 135 mm[Hg] 05/21/2023 14:02:00 2939B-Lr-W-[facility] Diastolic Blood Pressure 87 mm[Hg] 05/21/2023 14:02:00 6789K-Gx-J-[facility] Respiratory Rate 18 br/min 05/21/2023 14:02:00 2130A-Zj-T-[facility] Peripheral Pulse Rate 82 bpm 05/21/2023 14:02:00 1083H-Rm-R-[facility] Mean Arterial Pressure, Calc 103 mm[Hg] 05/21/2023 14:02:00 2403L-Ci-L-3 [facility] Peripheral Pulse Rate 73 bpm 05/15/2023 19:00:00 9991K-Ix-Y-[facility] Systolic Blood Pressure 138 mm[Hg] 05/15/2023 19:00:00 0714J-Kt-R-[facility] Diastolic Blood Pressure 79 mm[Hg] 05/15/2023 19:00:00 0197T-Gd-I-[facility] Respiratory Rate 14 br/min 05/15/2023 19:00:00 8188M-Kc-G-[facility] BP Site Left arm 05/15/2023 19:00:00 6130C -Af-C-[facility] Blood Pressure Manual Automatic 05/15/2023 19:00:00 3449U-Rn-I-[facility] Mean Arterial Pressure, Calc 99 mm[Hg] 05/15/2023 19:00:00 6512J-Xc-X-3 [facility] BP Site Right arm 01/02/2024 19:27:00 6130C -Af-C-[facility] Blood Pressure Manual Automatic 01/02/2024 19:27:00 7235B-Fl-O-[facility] Systolic Blood Pressure 113 mm[Hg] 01/02/2024 19:27:00 6439N-Si-F-[facility] Diastolic Blood Pressure 65 mm[Hg] 01/02/2024 19:27:00 6159Z-Xa-V-[facility] Peripheral Pulse Rate 81 bpm 01/02/2024 19:27:00 8017O-Cn-D-[facility] Mean Arterial Pressure, Calc 81 mm[Hg] 01/02/2024 19:27:00 4909H-Fd-H-3 [facility] Respiratory Rate 16 br/min 01/02/2024 19:27:00 6297E-Ow-O-[facility] Systolic Blood Pressure 155 mm[Hg] 09/19/2023 13:07:00 7668S-Vt-U-[facility] Diastolic Blood Pressure 83 mm[Hg] 09/19/2023 13:07:00 0501Z-Ug-X-[facility] Temperature Oral 36.5 Moon 09/19/2023 13:07:00 2017U-Nl-P-[facility] Mean Arterial Pressure, Calc 107 mm[Hg] 09/19/2023 13:07:00 2971E-Ur-Z-3 [facility] Peripheral Pulse Rate 77 bpm 09/19/2023 13:07:00 1347M-Za-R-[facility] Respiratory Rate 16 br/min 09/19/2023 13:07:00 0363E-Oy-A-[facility] Encounters Combined list of: 1) Encounters from Department of Veterans Affairs facilities going backup to the last 18 months, not all VA inpatient encounters are included; 2) Encounters from the Department of Defense facilities going backup to 280 months. Location Location Details Encounter Type Encounter Number Reason For Visit Attending Provider ADM Date DC Date Status Disposition Source [address] [place] [address] Rudolph CARDENAS ([facility] [place] [facility] [place] OUTPATIENT [id number] rt leg pain RASHAWN SANFORD 11/26 Released w/o Limitations [address] [place] [address] [place] [facility] [place] [facility] [place] [address] [place] [address] Rud[place] [facility] [place]Opt [place] OUTPATIENT [id number] Routine Eye Exam WESLEY KUHN 12/13 Released w/o Limitations [address] [place] [address] Rudolph CARDENAS ([facility] [place] [place] [place] [facility]) OUTPATIENT [id number] LEANNA Peace 01/03 [facility]ased [facility] Limitations [facility] [place] [facility] [address] [place] [address] Rud[place] [facility] [place] [facility] [place] [facility] Tm Blue[place] OUTPATIENT [id number] bp check SALAS LEARY Padmini 02/22 Released w/o Limitations [address] [place] [address] [place] [facility] [place] [facility] [place] [facility] Tm Blue) [address] [place] [address] [place] [facility] [place] TELE CONSULT [id number] Rx Request BEATRIZ WISE 10/[address] [place] [address] Rud[place] [facility] [place] [facility] [place] [facility] [place] [address] [place] [address] [place] [facility] [place] [facility] [place] [facility] Tm Blue[place] OUTPATIENT [id number] thyroid check up--[place] abisai more refil on meds BEATRIZ WISE 11/15 Released w/o Limitations [address] [place] [address] Rudolph CARDENAS ([facility] [place] [facility] [place] [facility] Tm Blue) [address] [place] [address] Rud[place] [facility] [place] [facility] [place] [facility] Tm Blue) TELE CONSULT [id number] refill SOFIA RICH 10/[address] [place] [address] Rud[place] [facility] [facility] [place] [facility] [place] [facility] [place] Blue) [address] [place] [address] Rudolph [facility] [facility] [place] [facility] [place] [facility] Tm Blue) OUTPATIENT [id number] fol thyroid and renewal med LEIGHA SOLIZ 11/21 Released w/o Limitations [address] [place] [address] Rudolph [place]DENAS [facility] [facility] Tm Blue) [address] [place] [address] Rudolph [place] [facility]Sco [facility] Tm Green) OUTPATIENT [id number] [facility] for [facility] refill CEFERINO BANKS 03/04 Released w/o Limitations [address] [place] [address] Rudolph [place] [facility] [facility] [place]m Green) [address] [place] [address] Rudolph CARDENAS ([facility]Sco tt [facility] Tm Green) TELE CONSULT [id number] Medicat ion refill - PCM FLACO River 12/[address] [place] [address] Rudolph CARDENAS ([facility]S cott OF Fam Res Tm Green) [address] [place] [address] Rudolph CARDENAS ([facility]Sco tt [facility] [place]) OUTPATIENT [id number] FOL UP MED REFILL [phone] RICARDO GAUTHIER 02/03 Released w/o Limitations [address] [place] [address] Rudolph CARDENAS ([facility]S cott [facility] F[facility] Tm Green) [address] [place] [address] Rudolph CARDENAS ([facility]Sco tt [facility] Tm Blue) TELE CONSULT [id number] Medicat ion questio n RICARDO GAUTHIER 03/[address] [place] [address] Rudolph CARDENAS ([facility]S cott [facility] Tm Blue) [address] [place] [address] Rudolph [place]S [facility]Sco tt [facility] Tm Blue) TELE CONSULT [id number] f/u lab RICARDO GAUTHIER 03/[address] [place] [address] Rudolph CARDENAS ([facility]S cott [facility] Tm [facility]) [address] [place] [address] Rudolph CARDENAS ([facility]Sco tt [facility] Tm Green) TELE CONSULT [id number] T Con for med refill. Dr Downs Phone [phone] CHARLY DOWNS 02/[address] [place] [address] Rudolph CARDENAS ([facility] cott [facility] [place]m Green) [address] [place] [address] Rudolph [place]S [facility] [place]m [place]) OUTPATIENT [id number] I need my thyroid Rx refCHARLY Sales 03/02 Released w/o Limitations [address] [place] [address] Rudolph CARDENAS ([facility]S cott [facility] [place]) [address] [place] [address] Rudolph [facility] [facility] [place]) OUTPATIENT [id number] Well woman check-u CHARLY Segovia 04/24 Released w/o Limitations [address] [place] [address] Rudolph CARDENAS ([facility]S cott [facility] Tm Green) [address] [place] [address] Rudolph [place]S [facility]co tt [facility] Tm Blue) TELE CONSULT [id number] med refill CHARLY DOWNS 06/[address] [place] [address] Rudolph CARDENAS ([facility]S cott OF FAMRES Tm Blue) [address] [place] [address] Rudolph CARDENAS ([facility]Sco tt [facility] [place]m [place]) TELE CONSULT [id number] RX refill both synthro id medicat ions - [phone] 2/979-1 [address] [facility] ADRIANA TAMI M 09/[address] [place] [address] Rudolph CARDENAS ([facility]S cott OF Fam Res Tm Green) [address] [place] [address] Rudolph CARDENAS ([facility]Sco tt [facility] [place]) TELE CONSULT [id number] T con for med refill Dr Downs phone [phone] c [phone] CHARLY DOWNS 11/[address] [place] [address] Rudolph CARDENAS ([facility]S cott [facility] [place]m [place]) [address] [place] [address] Rudolph CARDENAS ([facility]Sco tt [facility] [place]m [place]) TELE CONSULT [id number] Meds refills /Debby /fxs JARRED GUARDADO 03/[address] [place] [address] Rudolph CARDENAS ([facility]S cott OF Fam Res Tm Green) [address] [place] [address] Rudolph CARDENAS ([facility]Sco tt [facility] [place]) TELE CONSULT [id number] needs refill for synthro id 75 mcg JARRED GUARDADO 03/[address] [place] [address] Rudolph CARDENAS ([facility]S cott [facility] [place]m Green) [address] [place] [address] Rudolph CARDENAS ([facility]Sco tt [facility] [place]m [place]) OUTPATIENT [id number] Refill for synthro id JARRED GUARDADO 04/05 Released w/o Limitations [address] [place] [address] Rudolph CARDENAS ([facility]S cott [facility] [place] [place]) [address] [place] [address] Rudolph CARDENAS ([facility]Sco tt [facility] [place]m [place]) OUTPATIENT [id number] Check on hbp JARRED GUARDADO 04/30 Released w/o Limitations [address] [place] [address] Rudolph CARDENAS ([facility]S cott [facility] [place]) [address] [place] [address] Rudolph CARDENAS ([facility]Sco tt [facility] [place]m [place]) TELE CONSULT [id number] f/u pap CURTIS MEEHAN 05/[address] [place] [address] Rudolph [place]B [facility] [facility] [place]) [address] [place] [address] Rudolph [facility]Sco tt [facility] [place]m [place]) OUTPATIENT [id number] ASCUS unable to HPV DNA test ARMEN ARGUELLES 07/15 Released w/o Limitations [address] [place] [address] Rudolph [facility]S cott [facility] [place]m Green) [address] [place] [address] Rudolph [facility])(Sco tt [facility] [place]m Green) TELE CONSULT [id number] Notes Entered by: MO EASON 30 Jul [id number] ------- ------- ------- ------- -- Tcon for possibl e F/U concern ing meds Dr Guardado ph [phone] w [phone] cad ALEX Fuller 07/[address] [place] [address] Rudolph [facility])(S cott [facility] [place]m Green) [address] [place] [address] Rudolph [facility]Sco tt [facility] [place]) OUTPATIENT [id number] f/u symptom s experie nced while taking JESSE Peña 08/02 Released w/o Limitations [address] [place] [address] Rudolph [facility]S cott [facility] [place]m [place]) [address] [place] [address] Rudolph [facility]B [facility] [place]) TELE CONSULT [id number] Pap ARMEN ARGUELLES 08/[address] [place] [address] Rudolph [facility]S cott [facility] [place]m [place]) [address] [place] [address] Rudolph LEOB [facility] [place]) OUTPATIENT [id number] F/U per JESSE Jalloh 08/15 Released w/o Limitations [address] [place] [address] Rudolph B [facility] [facility] [place]) [address] [place] [address] Rudloph LEOB [facility]Sco tt [facility] [place]m [place]) TELE CONSULT [id number] Notes Entered by: ANNA RUDOLPH 27 Aug [id number] ------- ------- ------- ------- -- Med refill - Debby - [id number] - [facility] ZAKIA STROUDJULIANNA Gamino 08/[address] [place] [address] Group Rudolph CARDENAS ([facility] [place]S cott [facility] [place]) [address] [place] [address] Rudolph BAILEYB ([facility]Sco tt [facility] [place]m [place]) OUTPATIENT [id number] Follow up on medicat ions JARRED GUARDADO 09/30 Released w/o Limitations [address] [place] [address] Rudolph BAILEYB ([facility]S cott [facility] [place]) [address] [place] [address] Rudolph BAILEYB ([facility]Sco tt [facility] [place]m [place]) OUTPATIENT [id number] Follow up on meds JARRED GUARDADO 11/04 Released w/o Limitations [address] [place] [address] Rudolph BAILEYB ([facility]S cott [facility] [place] [place]) [address] [place] [address] Rudolph BAILEYB [facility]Sco tt [facility] [place]m [place]) OUTPATIENT [id number] f/ up on blood presssu re med JARRED GUARDADO 12/01 Released w/o Limitations [address] [place] [address] Rudolph BAILEYB ([facility]S cott [facility] [place]) [address] [place] [address] Rudolph [facility] [facility] tt [facility] Tm Blue) OUTPATIENT [id number] Notes Entered by: SAM NOLAND 13 Dec 2011 0900 ------- ------- ------- ------- -- BLOOD PRESSUR E SUELLEN BALLESTEROS 12/12 Released w/o Limitations [address] [place] [address] Rudolph BAILEYB ([facility]S cott [facility]m Blue) [address] [place] [address] Rudolph BAILEYB ([facility]Sco tt OF Fam Res Tm Green) TELE CONSULT [id number] Notes Entered by: MASON KUHN 28 Feb 2012 1734 ------- ------- ------- ------- -- Medicat ion refill JARRED GUARDADO 02/[address] [place] [address] Rudolph BAILEYB ([facility]S cott [facility] [place]m [place]) [address] [place] [address] Rudolph [facility]Sco tt [facility] [place]m Blue) TELE CONSULT [id number] Notes Entered by: JARRED GUARDADO 16 Mar 2012 1554 ------- ------- ------- ------- -- Lab results SANDRA KUHN Shilpa 03/16 Referred for Appointment [address] [place] [address])(S cott [facility] Tm Blue) [address] [place] [address])(Sco tt [facility] [place]m [place]) TELE CONSULT [id number] Notes Entered by: MO EASON 17 Mar 2012 0748 ------- ------- ------- ------- -- Tcon for lab results Dr Guardado ph [phone] cad dmj JARRED GUARDADO 03/[address] [place] [address])(S cott [facility] F[facility] [place]m [place]) [address] [place] [address])(Sco tt [facility] [place]) OUTPATIENT [id number] refill medicat ion SUDHA ASHTON 05/22 Released w/o Limitations [address] [place] [address])(S cott [facility] [place]) [address] [place] [address])(Sco tt [facility] [place]) OUTPATIENT [id number] Follow- up on Pre-Alyce SUELLEN Oscar 07/03 Released w/o Limitations [address] [place] [address])(S cott [facility] [place]m [place]) [address] [place] [address])(Sco tt [facility] [place]m [place]) TELE CONSULT [id number] Notes Entered by: ZACH MAYS 07 Jul 2012 0900 ------- ------- ------- ------- -- DAVEY Gregory 07/[address] [place] [address] Rudolph [facility]S cott [facility] [place]m Green) [address] [place] [address])(Sco tt [facility] [place]m [place]) TELE CONSULT [id number] Notes Entered by: MO EASON 17 Jul 2012 1255 ------- ------- ------- ------- -- Med refill Dr Guardado ph [phone] JARRED GUARDADO 07/[address] [place] [address] Rudolph [place]DENAS [facility] OF Fam Res Tm Green) [address] [place] [address] Rudolph [facility])(Sco tt [facility]m Blue) TELE CONSULT [id number] Notes Entered by: SUELLEN RAMIRES 31 Jul 2012 1206 ------- ------- ------- ------- -- SUELLEN Britt 07/[address] [place] [address] Rudolph Jazmin [facility]S cott [facility]) [address] [place] [address] Rudolph B [facility]Sco tt [facility] [place]m [place]) OUTPATIENT [id number] Follow- up Pap Smear for Dysplas ia Clinic, plus meds follow- up [employer] in JARRED GUARDADO 12/04 Released w/o Limitations [address] [place] [address] Rudolph [facility]S cott [facility] [place]m [place]) [address] [place] [address] Rudolph [facility]Sco tt [facility] [place]m [place]) TELE CONSULT [id number] Notes Entered by: JARRED GUARDADO 26 Dec 2012 0940 ------- ------- ------- ------- -- ASCUS JARRED GUARDADO 12/[address] [place] [address] Rudolph [facility]S cott [facility] [place]m [place]) [address] [place] [address] Rudolph [facility] [facility] [place] Blue) OUTPATIENT [id number] Cont ASCUS/H PV ARASH Pa 01/11 Released w/o Limitations [address] [place] [address] Rudolph [facility]B [facility]S cott [facility] [place]m Blue) [address] [place] [address] LEOB [facility]Sco tt [facility] [place] Blue) TELE CONSULT [id number] Notes Entered by: KATHRIN BABIN 18 Jan 2013 1252 ------- ------- ------- ------- -- Colposc opy results KATHRIN BABIN 01/[address] [place] [address] Group Rudolph BAILEYB ([facility]S cott OF FAMRES Tm Blue) [address] [place] [address] Rudolph BAILEYB ([facility]Sco tt OF Fam Res Tm Green) OUTPATIENT [id number] [place] se Symptom s JARRED GUARDADO 03/26 Released w/o Limitations [address] [place] [address] Group [employer] ([facility]S cott OF Fam Res Tm Green) [address] [place] [address] [employer] ([facility]Sco tt OF Fam Res Tm Green) OUTPATIENT [id number] F/U JARRED GUARDADO 05/14 Released w/o Limitations [address] [place] [address] [employer] ([facility]S cott OF Fam Res Tm Green) [address] [place] [address] Rudolph BAILEYB ([facility]Sco tt OF Fam Res Tm Green) OUTPATIENT [id number] FOLLOW UP ON MARYBERNARDOJARRED BUTLER 05/26 Released w/o Limitations [address] [place] [address] Group [employer] ([facility]S cott OF Fam Res Tm Green) [address] [place] [address] [employer] ([facility]Sco tt OF Fam Res Tm Green) TELE CONSULT [id number] Notes Entered by: CHE PALOMO 29 Jun 2013 1247 ------- ------- ------- ------- -- [facility] vickie Franks ENEIDA CLIFTON 06/29 [facility] [employer] ([facility]S cott OF Fam Res Tm Green) [address] [place] [address] [employer] ([facility]Sco tt OF FAMRES Tm Blue) TELE CONSULT [id number] Notes Entered by: KRIS ASHFORD 30 Jul 2013 1246 ------- ------- ------- ------- -- Medicat ion Renewal JARRED GUARDADO 07/30 [facility] [employer] ([facility]S cott OF FAMRES Tm Blue) [address] [place] [address] Rudolph CARDENAS [facility]Sco tt [facility] Blue) TELE CONSULT [id number] Notes Entered by: LISA BOWLING 01 Oct 2013 0942 ------- ------- ------- ------- -- [facility] med Refill JARRED GUARDADO 10/[address] [place] [address] Rudolph [facility] [address] [place] [address] Rud[place] [facility]co tt [facility] Res Tm Green) OUTPATIENT [id number] Follow up on Thyroid and Diabeti c Meds JARRED GUARDADO 11/19 Released w/o Limitations [address] [place] [address] Rudolph [place]DENAS [facility]S [facility] Fam Res Tm Green) [address] [place] [address] Rudolph CARDENAS [facility]Sco tt [facility] Fam Res Tm Red) TELE CONSULT [id number] Notes Entered by: KATHRIN BABIN 23 Nov 2013 1549 ------- ------- ------- ------- -- Dysplas ia f/u KATHRIN BABIN 11/[address] [place] [address] Rudolph [facility])(S [facility] Fam Res Tm Red) [address] [place] [address] Rudolph CARDENAS [facility]Sco tt [facility] Fam Res Tm Gold) OUTPATIENT [id number] Notes Entered by: ROMI JANG 08 Dec 2013 1826 ------- ------- ------- ------- -- Diabete s ARASH Bowles 12/08 Released w/o Limitations [address] [place] [address] Rudolph [facility]AI[facility]B [facility]S [facility] Fam Res Tm Gold) [address] [place] [address] Rudolph CARDENAS [facility]) OUTPATIENT [id number] Notes Entered by: JEANE ANGEL 14 Dec 2013 1601 ------- ------- ------- ------- -- Diabete s Mapping Nutriti on Map QUOC ANGEL 12/14 Released w/o Limitations [address] [place] [address] Rudolph CARDENAS ([facility])(N utritio nal Medicin e) [address] [place] [address] Rudolph [facility])(Sco tt Disease Managemen t) OUTPATIENT [id number] Notes Entered by: BRIDGETTE NAPOLES 22 Dec 2013 1611 ------- ------- ------- ------- -- Pt into office for Diabeti c Mapping Class #3 BRIDGETTE NAPOLES 12/22 Released w/o Limitations [address] [place] [address] Rudolph LEOJazmin [facility]S cott Disease Managem ent) [address] [place] [address] Rudolph LEOJazmin [facility]Sco tt [facility] Fam Res Tm Green) OUTPATIENT [id number] Diabete s managem ent KEITH MONIQUE 12/27 Released w/o Limitations [address] [place] [address] Rudolph [facility])(S cott [facility] Fam Res Tm Green) [address] [place] [address] Rudolph [facility])(Sco tt [facility] Tm Blue) TELE CONSULT [id number] Notes Entered by: MO EASON 10 Feb 2014 1356 ------- ------- ------- ------- -- Network results - Optomet ry 014 KEITH MONIQUE 02/[address] [place] [address] Rudolph RONALD [facility]S cott [facility] Tm Blue) [address] [place] [address] Rudolph LEOJazmin [facility]Sco tt [facility] Fam Res Tm Green) TELE CONSULT [id number] Notes Entered by: Anusha MALONEY 22 Mar 2014 1559 ------- ------- ------- ------- -- Lab results WESLEY BYNUM 03/22 Advice Assessment [address] [place] [address] Rudolph LEOJazmin [facility]S cott [facility] Fam Res Tm Green) [address] [place] [address] Rudolph LEOJazmin [facility]Sco tt [facility] Fam Res Tm Red) TELE CONSULT [id number] Notes Entered by: KATHRIN BABIN 24 Mar 2014 1211 ------- ------- ------- ------- -- Dysplas ia pt need pap smear f/u TORRIEKIACHELSI MottKEITH K 03/[address] [place] [address] Rudolph CARDENAS [facility]S [facility] Fam Res Tm Red) [address] [place] [address] [employer] [facility]Sco tt [facility] Fam Res Tm Red) TELE CONSULT [id number] Notes Entered by: KATHRIN BABIN 14 Jul 2014 1414 ------- ------- ------- ------- -- PAP SMEAR DUE MARIA ELENA MONIQUEEvens Martin 07/[address] [place] [address] Rudolph CARDENAS [facility]S cott [facility] Fam Res Tm Red) [address] [place] [address] Rudolph BAILEYB [facility]Sco tt [facility] Fam Res Tm Green) OUTPATIENT [id number] Medicat ion JILL Raymond 08/18 Released w/o Limitations [address] [place] [address] Rudolph BAILEYB [facility]S cott [facility] Fam Res Tm Green) [address] [place] [address] [employer] [facility]Sco tt [facility] Fam Res Tm Green) OUTPATIENT [id number] well woman MARICARMEN UMANZOR 08/23 Released w/o Limitations [address] [place] [address] Rudolph [facility]AI[facility]B [facility]S cott [facility] Fam Res Tm Green) [address] [place] [address] [employer] [facility] [place] [facility] [place] [facility] Tm Blue) TELE CONSULT [id number] Notes Entered by: Zachary UMANZOR 06 Sep 2014 1631 ------- ------- ------- ------- -- PAP result KELVIN MUNGUIA 09/[address] [place] [address] [place] [facility] [place] [facility] [place] [facility] Tm Blue) [address] [place] [address] [employer] [facility] [place] OUTPATIENT [id number] Cerv Pap Smear (+) Atyp Squamou s Cells Undeter mined Signif DAVID LE 09/26 Released w/o Limitations [address] [place] [address] [employer] [facility] [place] Clinic[place] [address] [place] [address] [employer] [facility] [place] [facility] [place] Tm Red) TELE CONSULT [id number] Notes Entered by: KATHRIN BABIN 05 Oct 2014 1220 ------- ------- ------- ------- -- Colpo results DAVID LE 10/[address] [place] [address] Group [facility] [facility] [place] [facility] [place] Fam Res Tm Red) [address] [place] [address] [facility] [facility] [place]) OUTPATIENT [id number] AUBREY GOODWIN 10/17 Released w/o Limitations [address] [place] [address] [place] [facility] [address] [place] [address] Rudolph [facility]co tt [facility] Tm Blue) TELE CONSULT [id number] Notes Entered by: EDITH CLAIRE 25 Oct 2014 1048 ------- ------- ------- ------- -- Tissue result AUBREY JIMENEZ 10/[address] [place] [address] Rud[place] [facility] cott [facility]) [address] [place] [address] Rudolph [facility]co tt [facility] Fam Res Tm Green) TELE CONSULT [id number] Notes Entered by: CARLY DURAN 01 Dec 2014 0902 ------- ------- ------- ------- -- Optomet MEENAKSHI Jimenes 12/01 Referred for Appointment [address] [place] [address] Rudolph [facility] [facility] Tm Green) [address] [place] [address] Rud[place] [facility]co tt [facility] Fam Res Tm Green) TELE CONSULT [id number] Notes Entered by: LISA BUSTILLOS 01 Dec 2014 0941 ------- ------- ------- ------- -- WESLEY Gilliam 12/[address] [place] [address] Rudolph [facility] cott [facility] Tm Green) [address] [place] [address] Rud[place] [facility]co tt [facility]am [facility] Tm Green) TELE CONSULT [id number] Notes Entered by: CRYSTAL HALEY 29 Dec 2014 1115 ------- ------- ------- ------- -- Network results Optomet ry 5 KEITH MONIQUE 12/[address] [place] [address] Rudolph [facility]S [facility] Fam Res Tm Green) [address] [place] [address] Rudolph [facility])(Sco [facility] Fam Res Tm Gold) TELE CONSULT [id number] Notes Entered by: SUELLEN KEENE 02 Mar 2015 1416 ------- ------- ------- ------- -- Annual Lipid Panel Ordered SUELLEN KEENE 03/[address] [place] [address] Rudolph Jazmin [facility]S [facility] Fam Res Tm Gold) [address] [place] [address] Rudolph [facility])(War rior Op Med Cln Tm A Ad) TELE CONSULT [id number] Notes Entered by: ANNA RUDOLPH 05 Jun 2015 0730 ------- ------- ------- ------- -- U.C f/u - note for work - SYMPTOM S PERSIST - Patty yung - [phone]* JOSE CRUZ FABIAN 06/[address] [place] [address] Rudolph [facility])(W arrior Op Med Cln Tm A Ad) [address] [place] [address] Rudolph [facility])(Fam nina Med Tm B Non-AD BCC) OUTPATIENT [id number] f/u from rik logan ankle/s till in pain JULIANA CARDOZA 06/05 Released w/o Limitations [address] [place] [address] Rudolph [facility])(F amily Med Tm B Non-AD BCC) [address] [place] [address] Rudolph [facility])(War rior Op Med Cln Tm A Ad) TELE CONSULT [id number] Notes Entered by: CRYSTAL HALEY 06 Jul 2015 1417 ------- ------- ------- ------- -- Network - Results Physica l Therapy 6 JULIANA MAN 07/[address] [place] [address])(W arrior Op Med Cln Tm A Ad) [address] [place] [address])(War rior Op Med Cln Tm A Ad) OUTPATIENT [id number] medicat ions refill JOHNATHANWILBERTMELYSSA GALINDO 08/29 Released w/o Limitations [address] [place] [address])(W arrior Op Med Cln Tm A Ad) [address] [place] [address])(Sco tt Disease Managemen t) TELE CONSULT [id number] Notes Entered by: EITAN SAMANO 30 Aug 2015 1419 ------- ------- ------- ------- -- Labs due before PCM appt SANTANA CARDONA 08/[address] [place] [address])(S cott Disease Managem ent) [address] [place] [address])(War rior Op Med Cln Tm A Ad) TELE CONSULT [id number] Notes Entered by: PROSPER CAMP 05 Sep 2015 1305 ------- ------- ------- ------- -- Lab THAIS ROBERTS 09/[address] [place] [address])(W arrior Op Med Cln Tm A Ad) [address] [place] [address])(Min or Procedure Clinic) TELE CONSULT [id number] Notes Entered by: KATHRIN BABIN 18 Sep 2015 1638 ------- ------- ------- ------- -- Due for pap smear KATHRIN BABIN 09/[address] [place] [address])(M inor Procedu re Clinic) [address] [place] [address])(Fam nina Med Tm B Non-AD BCC) TELE CONSULT [id number] Notes Entered by: AIDEN DAVIES 10 Oct 2015 1056 ------- ------- ------- ------- -- Network Results AUDIOLO GY 09/26/15 MELYSSA BARR 10/[address] [place] [address])(F amily Med Tm B Non-AD BCC) [address] [place] [address])(Min or Procedure Clinic) OUTPATIENT [id number] pap only SUJIT PERERA 10/25 Released w/o Limitations [address] [place] [address])(M inor Procedu re Clinic) [address] [place] [address])(Min or Procedure Clinic) TELE CONSULT [id number] Notes Entered by: KATHRIN BABIN 07 Nov 2015 1617 ------- ------- ------- ------- -- Pap results SUJIT PERERA 11/[address] [place] [address])(M inor Procedu re Clinic) [address] [place] [address])(Med ication Refill Clinic) TELE CONSULT [id number] Notes Entered by: KIMBERLY PAZ 20 Nov 2015 0742 ------- ------- ------- ------- -- Rx renewal - Patty yung - -t SANTANA Sun 11/[address] [place] [address])(M edicati on Refill Clinic) [address] [place] [address])(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) TELE CONSULT [id number] Notes Entered by: LUDA AVILA 20 Nov 2015 1442 ------- ------- ------- ------- -- Dysplas ia follow up LUDA AVILA 11/[address] [place] [address] Rudolph [facility])(G ysanfordcolo gy) [address] [place] [address])(Sco tt [facility]am Res Tm Gold) TELE CONSULT [id number] Notes Entered by: Jazmin REYNOSO 13 Dec 2015 1016 ------- ------- ------- ------- -- Portia bhardwaj) THERESE MCCAIN 12/12 Referred for Appointment [address] [place] [address] Rudolph [facility])(S [facility] Fam Res Tm Gold) [address] [place] [address])(War rior Op Med Cln Tm A Ad) TELE CONSULT [id number] Notes Entered by: VERA RANGEL 21 Dec 2015 1409 ------- ------- ------- ------- -- Network Results -OPTOME TRY 12/14/15, 12/16/15, 12/18/15 SDG ACE SANCHEZ 12/[address] [place] [address])(W arrior Op Med Cln Tm A Ad) [address] [place] [address])(War rior Op Med Cln Tm A Ad) TELE CONSULT [id number] Notes Entered by: MARY MCCAIN 19 Jan 2016 0947 ------- ------- ------- ------- -- Taye / RENITA Mendoza 01/[address] [place] [address])(W arrior Op Med Cln Tm A Ad) [address] [place] [address])(War rior Op Med Cln Tm A Ad) TELE CONSULT [id number] Notes Entered by: VERA RANGEL 23 Jan 2016 0736 ------- ------- ------- ------- -- Network Results -RADIOL OGY 01/19/16 CT HEAD SDG MELYSSA MORRIS 01/[address] [place] [address])(W arrior Op Med Cln Tm A Ad) [address] [place] [address])(War rior Op Med Cln Tm A Ad) TELE CONSULT [id number] Notes Entered by: Jr LANCASTER 25 Jan 2016 0811 ------- ------- ------- ------- -- Network Results OPTOMET RY 01/19/20 16 DB MELYSSA MORRISTobias 01/[address] [place] [address])(W arrior Op Med Cln Tm A Ad) [address] [place] [address])(War rior Op Med Cln Tm A Ad) TELE CONSULT [id number] Notes Entered by: SA Shilpa JONES 25 Jan 2016 1441 ------- ------- ------- ------- -- New patient ED encount er note. MELYSSA MORRISTobias 01/[address] [place] [address])(W arrior Op Med Cln Tm A Ad) [address] [place] [address])(War rior Op Med Cln Tm A Ad) OUTPATIENT [id number] eye pain MELYSSA MORRISTobias 01/25 Released w/o Limitations [address] [place] [address])(W arrior Op Med Cln Tm A Ad) [address] [place] [address])(Sco tt Disease Managemen t) TELE CONSULT [id number] Notes Entered by: Veronica HAAS 12 Apr 2016 1036 ------- ------- ------- ------- -- Diabeti c Educati on HEIKE HAAS 04/[address] [place] [address])(S cott Disease Managem ent) [address] [place] [address])(Min or Procedure Clinic) OUTPATIENT [id number] repeat pap/las t pap DAVE Doty 04/12 Released w/o Limitations [address] [place] [address])(M inor Procedu re Clinic) [address] [place] [address])(War rior Op Med Cln Tm A Ad) TELE CONSULT [id number] Notes Entered by: ABBY HOOD 17 Apr 2016 0647 ------- ------- ------- ------- -- Lab results HEIKE HAAS 04/[address] [place] [address])(W arrior Op Med Cln Tm A Ad) [address] [place] [address])(Sco tt [facility] Tm Blue) TELE CONSULT [id number] KATHRIN BABIN 04/[address] [place] [address])(S cott [facility] Tm Blue) [address] [place] [address])(War rior Op Med Cln Tm A Ad) TELE CONSULT [id number] Notes Entered by: PROSPER CAMP 04 Jul 2016 1235 ------- ------- ------- ------- -- OME-Med s MELYSSA MORRIS 07/[address] [place] [address])(W arrior Op Med Cln Tm A Ad) [address] [place] [address])(War rior Op Med Cln Tm A Ad) OUTPATIENT [id number] pill refill MELYSSA MORRIS 10/10 Released w/o Limitations [address] [place] [address])(W arrior Op Med Cln Tm A Ad) [address] [place] [address])(War rior Op Med Cln Tm A Ad) TELE CONSULT [id number] Notes Entered by: CEFERINO CORONADO 07 Nov 2016 1510 ------- ------- ------- ------- -- Network Results - Optomet ry 7 JOSELYN ROMAN 11/[address] [place] [address])(W arrior Op Med Cln Tm A Ad) [address] [place] [address])(War rior Op Med Cln Tm A Ad) TELE CONSULT [id number] Notes Entered by: JANE MUNIZ 18 Mar 2017 1313 ------- ------- ------- ------- -- Medicat ion refill MULUDAVEY Evens 03/18 Referred for Appointment [address] [place] [address])(W arrior Op Med Cln Tm A Ad) [address] [place] [address])(Med ication Refill Clinic) TELE CONSULT [id number] Notes Entered by: Padmini NEGRON 20 Mar 2017 0830 ------- ------- ------- ------- -- Med Renewal / Blessin Palmiralcar one/ Cp# [phone] - SANTANA Dunlap 03/[address] [place] [address])(Antonia howe on Refill Clinic) [address] [place] [address])(Sco tt Disease Managemen t) TELE CONSULT [id number] Notes Entered by: Veronica HAAS 22 Sep 2017 1116 ------- ------- ------- ------- -- Disease Managem ent-[phone] and [phone] HEIKE HAAS 09/[address] [place] [address])(S cott Disease Managem ent) [address] [place] [address])(War rior Op Med Cln Tm A Ad) OUTPATIENT [id number] lab and med review JULIANA CARDOZA 09/25 Released w/o Limitations [address] [place] [address])(W arrior Op Med Cln Tm A Ad) [address] [place] [address])(War rior Op Med Cln Tm A Ad) TELE CONSULT [id number] Notes Entered by: ARTEM WOOD 27 Nov 2017 1207 ------- ------- ------- ------- -- Sx - L eye blurry (referr al request )/Brisc oe/618. [phone] 0 ELIOT, EDDI J 11/[address] [place] [address] Rudolph [facility])(W arrior Op Med Cln Tm A Ad) [address] [place] [address])(Sco tt Disease Managemen t) TELE CONSULT [id number] Notes Entered by: Veronica HAAS 14 Jan 2018 1515 ------- ------- ------- ------- -- Disease HEIKE HAAS 01/14 Referred for Appointment [address] [place] [address] Rudolph [facility])(S cott Disease Managem ent) [address] [place] [address] Rudolph [facility])(War rior Op Med Cln Tm A Ad) OUTPATIENT [id number] CONTINO US LYDIA SAEED 07/14 Released w/o Limitations [address] [place] [address] Rudolph [facility])(W arrior Op Med Cln Tm A Ad) [address] [place] [address])(War rior Op Med Cln Tm A Ad) OUTPATIENT [id number] 1 REFILL FOR MEDICAT HELGA ESTES 08/17 Released w/o Limitations [address] [place] [address])(W arrior Op Med Cln Tm A Ad) [address] [place] [address])(Sco tt [facility]am Res Tm Green) OUTPATIENT [id number] pill refill YAKOV ANDRADE 09/05 Released w/o Limitations [address] [place] [address])(S cott [facility] Fam Res Tm Green) [address] [place] [address])(Sco tt [facility] Fam Res Tm Green) TELE CONSULT [id number] Notes Entered by: EUNICE DONG 07 Sep 2019 0844 ------- ------- ------- ------- -- virtual appt[facility]/[phone] SIGRID Norton 09/06 Other Not Elsewhere Classified [address] [place] [address] Rudolph [facility]S cott [facility] Fam Res Tm Green) [address] [place] [address])(Sco tt [facility] Fam Res Tm Green) TELE CONSULT [id number] Notes Entered by: JOSELYN RANGEL 09 Sep 2019 1101 ------- ------- ------- ------- -- BROOKE Finch 09/[address] [place] [address] Rudolph [facility])(S [facility] Fam Res Tm Green) [address] [place] [address] Rudolph [facility]Sco tt [facility] Fam Res Tm Green) OUTPATIENT [id number] [phone] BEN TRIPP @AOL.[facility] Medicat ion refLUIS DANIEL Garland 09/18 Released w/o Limitations [address] [place] [address])([address] [facility] Fam Res Tm Green) [address] [place] [address])(Sco tt [facility] Fam Res Tm Green) TELE CONSULT [id number] Notes Entered by: IRLANDA BENJAMIN 05 Oct 2020 1248 ------- ------- ------- ------- -- Network results Optomet ry 021 KSP LUIS DANIEL SHORE E 10/05 Referred for Appointment [address] [place] [address] Rudolph [facility])(S [facility] Fam Res Tm Green) [address] [place] [address])(Sco tt [facility] Fam Res Tm Green) OUTPATIENT [id number] RX renewal MARIA EUGENIA ROBLEDO 08/31 Released w/o Limitations [address] [place] [address])(S [facility] Fam Res Tm Green) [address] [place] [address])(Sco tt [facility] Fam Res Tm Green) OUTPATIENT [id number] Virtual -Review labs [phone] MARIA EUGENIA ROBLEDO 09/21 Released w/o Limitations [address] [place] [address] Rudolph [facility])(S [facility] Fam Res Tm Green) [address] [place] [address])(Sco tt Disease Managemen t) TELE CONSULT [id number] Notes Entered by: SAMY WHITTINGOTN 25 Sep 2021 174 ------- ------- ------- ------- -- Referra rodriguez for diabete s educati brunilda/ Nino/ GALLITO DASILVA 09/25 Referred for Appointment [address] [place] [address] Rudolph [facility]S mehdi Disease Managem ent) [address] [place] [address] Rudolph [facility])(Sco tt [facility] Fam Res Tm Green) TELE CONSULT [id number] Notes Entered by: AIDEE ALFARO 12 Oct 2021 0954 ------- ------- ------- ------- -- Med Request SYEDA JETER 10/12 Referred for Appointment [address] [place] [address])(Emily harding [facility] Fam Res Tm Green) [address] [place] [address])(Sco tt [facility] Fam Res Tm Green) TELE CONSULT [id number] Notes Entered by: Anusha VICK 19 Oct 2021 1036 ------- ------- ------- ------- -- Network results Optomet ry 09/20/19 22 MARIA EUGENIA ORLANDO 10/19 Released to Self Care [address] [place] [address])(Emily harding [facility] Fam Res Tm Green) [address] [place] [address])([address] [facility] Medicine) OUTPATIENT [id number] Type 2 diabete s mellitu s with hypergl ycemia LAUREN, DONADL S 10/19 Released w/o Limitations [address] [place] [address] Rudolph [facility])(N utritio nal Medicin e) [address] [place] [address] Rudolph [facility])(Sco tt Disease Managemen t) OUTPATIENT [id number] Type 2 diabete s mellitu s with hypergl ycemia GALLITO DASILVA 10/19 Released w/o Limitations [address] [place] [address] Rudolph [facility])(S mehdi Disease Managem ent) [address] [place] [address] Rudolph [facility])(Sco tt [facility] Fam Res Tm Green) OUTPATIENT [id number] VIRTUAL -[phone] diabete s follow- up (resche duled) LUIS DANIEL SHORE 11/08 Released w/o Limitations [address] [place] [address] Rudolph [facility]OJazmin [facility]S cott [facility] Fam Res Tm Green) [address] [place] [address] Rudolph Jazmin [facility]Sco tt Disease Managemen t) OUTPATIENT [id number] 6 diabete s educati on GALLITO DASILVA 12/04 Released w/o Limitations [address] [place] [address] Rudolph [facility]OJazmin [facility]S cott Disease Managem ent) [address] [place] [address] Rudolph [facility]Jazmin [facility]Sco tt [facility] Tm Blue) TELE CONSULT [id number] Notes Entered by: CHELSI VALDEZ 13 Dec 2021 0816 ------- ------- ------- ------- -- DM Lab inquiry MARK ANTHONY VALDEZ 12/13 Referred for Appointment [address] [place] [address] Rudolph [facility]OJaz[facility] [address] [place] [address] Rudolph LEOJazmin [facility]Sco tt [facility] Res Tm Green) TELE CONSULT [id number] Notes Entered by: Antonia ROCHA 21 Dec 2021 0759 ------- ------- ------- ------- -- A1C discuss adjust RX/McCa ll/618. [phone] 6 SPRING DE JESUS 12/21 Referred for Appointment [address] [place] [address] Rudolph [facility]OJazmin [facility]S [facility] Fam Res Tm Green) [address] [place] [address] Rudolph LEOJazmin [facility]Sco tt [facility] Fam Res Tm Green) OUTPATIENT [id number] A1C Lab Review, Possibl e Med change MARIA EUGENIA ROBLEDO 01/09 Released w/o Limitations [address] [place] [address] Rudolph LEOJazmin [facility]S cott [facility] Fam Res Tm Green) [address] [place] [address] Rudolph LEOJazmin [facility]Sco tt [facility] Fam Res Tm Green) TELE CONSULT [id number] Notes Entered by: HENRY GORMAN 02 Sep 2022 1004 ------- ------- ------- ------- -- Portia Renee /Taye /SPRING Gonzalez 09/02 Referred for Appointment [address] [place] [address] Rudolph CARDENAS [facility]S cott [facility] Fam Res Tm Green) [address] [place] [address] Rudolph CARDENAS [facility]Sco tt [facility] Fam Res Tm Green) OUTPATIENT [id number] 1 f2f, refill 6 meds ravinderi ng nancy camacho, cliff tompkins, review labs MARIA EUGENIA ROBLEDO 09/03 Released w/o Limitations [address] [place] [address] Rudolph CARDENAS [facility]S cott [facility] Fam Res Tm Green) [address] [place] [address] Rudolph [facility])(Sco tt [facility] Fam Res Green) TELE CONSULT [id number] Notes Entered by: MARIA EUGENIA ROBLEDO 20 Sep 2022 1318 ------- ------- ------- ------- -- Pap Smear Results MARIA EUGENIA ROBLEDO 09/20 Released to Self Care [address] [place] [address] Rudolph [facility]S [facility] Fam Res Tm Green) [address] [place] [address] Rudolph [facility])(Sco tt [facility] Fam Res Tm Green) TELE CONSULT [id number] Notes Entered by: ANTHONY AC 01 Oct 2022 1035 ------- ------- ------- ------- -- Network results Optomet ry 023 JOJOW SHANT RODRÍGUEZ 10/01 Released to Self Care [address] [place] [address] Rudolph [facility]S [facility] Fam Res Tm Green) [facility] Outpatient Encounter [id number] 11/28 [facility] [id number] [facility] manfred Outpatient [id number] JUICE DMANIV 08/06 Discharge Disposition: Home or Self Care 0055A-3 75th [facility] 6130C-Af- C-375 [facility] manfred Between Visit [id number] 09/10 Discharge Disposition: Home or Self Care 6130C-A f-C-375 Th [facility] 5A-375 th [facility] manfred Outpatient [id number] JUICE SHAW 10/01 Discharge Disposition: Home or Self Care 5A-3 75th [facility] 5A-375 th [facility] manfred Outpatient [id number] MICHAEL F 10/15 Discharge Disposition: Home or Self Care 5A-3 75th [facility] 6130C-Af- C-375Th [facility] manfred Between Visit [id number] 10/21 Discharge Disposition: Home or Self Care 6130C-A f-C-375 Th [facility] Procedures Combined list of: 1) Procedures from Department of Veterans Affairs facilities going back up to thelast 18 months, not all VA non-surgical procedures are included; 2) All procedures from the Department of Defense facilities. Procedure Procedure Type Code Date Perfomer [facility]idan [facility] IMMUNIZATION ADMINISTRATION (INCLUDES PERCUTANEOUS, INTRADERMAL, SUBCUTANEOUS, OR INTRAMUSCULAR INJECTIONS); 1 VACCINE (SINGLE OR COMBINATION VACCINE/TOXOID) [facility] PSYCHIATRIC DIAGNOSTIC INTERVIEW EXAMINATION [facility] BRIEF EMOTIONAL/BEHAVIORA L ASSESSMENT (EG, DEPRESSION INVENTORY, ATTENTION-DEFICIT/H YPERACTIVITY DISORDER [ADHD] SCALE), WITH SCORING AND DOCUMENTATION, PER STANDARDIZED INSTRUMENT DoD WAIVER SERVICES; NOT OTHERWISE SPECIFIED (NOS) [facility] DISEASE MANAGEMENT PROGRAM, FOLLOW-UP/REASSESSM ENT Do[facility] WAIVER SERVICES; NOT OTHERWISE SPECIFIED (NOS) DoD DISEASE MANAGEMENT PROGRAM; INITIAL ASSESSMENT AND INITIATION OF THE PROGRAM [facility] MEDICAL NUTRITION THERAPY; INITIAL ASSESSMENT AND INTERVENTION, INDIVIDUAL, EUVT-RN-ZTVO WITH THE PATIENT, EACH 15 MINUTES [facility] QUALIFIED NONPHYSICIAN HEALTH HORIZONTAL BORING MILL SET UP OPERATOR ONLINE DIGITAL ASSESSMENT AND MANAGEMENT, FOR AN ESTABLISHED PATIENT, FOR UP TO 7 DAYS, CUMULATIVE TIME DURING THE 7 DAYS; 5-10 MINUTES [facility] DISEASE MANAGEMENT PROGRAM, FOLLOW-UP/REASSESSM ENT [facility] CASE MANAGEMENT, EACH 15 MINUTES DoD WAIVER SERVICES; NOT OTHERWISE SPECIFIED (NOS) [facility] FOOT EXAMINATION PERFORMED (INCLUDES EXAMINATION THROUGH VISUAL INSPECTION, SENSORY EXAM WITH MONOFILAMENT, AND PULSE EXAM - REPORT WHEN ANY OF THE 3 COMPONENTS ARE COMPLETED) (DM) [facility] WAIVER SERVICES; NOT OTHERWISE SPECIFIED (NOS) DoD TELE ASSESS & MGT SRV PROV QUAL NONPHYS HLTH CARE PRO TO EST PAT,PARENT,GUARD NOT ORIG REL ASSESS & MGT SRV PROV W/IN PREV 7 DAYS NOR LEAD ASSESS & MGT SRV/PX W/IN NXT 24 HR/SOON APT;5-10 MIN MED DIS 020 DoD TELE ASSESS & MGT SRV PROV QUAL NONPHYS HLTH CARE PRO TO EST PAT,PARENT,GUARD NOT ORIG REL ASSESS & MGT SRV PROV W/IN PREV 7 DAYS NOR LEAD ASSESS & MGT SRV/PX W/IN NXT 24 HR/SOON APT;5-10 MIN MED DIS [facility] NURSING ASSESSMENT/EVALUATI ON 018 DoD TELE ASSESS & MGT SRV PROV QUAL NONPHYS HLTH CARE PRO TO EST PAT,PARENT,GUARD NOT ORIG REL ASSESS & MGT SRV PROV W/IN PREV 7 DAYS NOR LEAD ASSESS & MGT SRV/PX W/IN NXT 24 HR/SOON APT;5-10 MIN MED DIS 018 DoD TELE ASSESS & MGT SRV PROV QUAL NONPHYS HLTH CARE PRO TO EST PAT,PARENT,GUARD NOT ORIG REL ASSESS & MGT SRV PROV W/IN PREV 7 DAYS NOR LEAD ASSESS & MGT SRV/PX W/IN NXT 24H/SOON APT; 21-30 MIN MED DIS 018 [facility] ONLINE ASSESS &MANAG SERV PROVIDE,A QUAL NONPHYS HCP TO AN ESTABLISHED PAT/GUARDIAN,NOT ORIGINAT FR RELAT ASSESS &MANAG SERV PROVIDE W/IN THE PREV 7 DAYS,USE THE INTERNET/SIMILAR manetch NETWORK 017 [facility] EDUCATION &TRAINING, PATIENT SELF-MGT QUALIFIED, NONPHYSICIAN HEALTH HORIZONTAL BORING MILL SET UP OPERATOR USING STDIZED CURRICULUM, [id number] W THE PATIENT (COULD INCL CAREGIVER/FAMILY) EA 30 MIN; INDIVIDUAL PATIENT 016 [facility] SCREENING PAPANICOLAOU SMEAR; OBTAINING, PREPARING AND CONVEYANCE OF CERVICAL OR VAGINAL SMEAR TO LABORATORY 016 DoD EDUCATION &TRAINING, PATIENT SELF-MGT QUALIFIED, NONPHYSICIAN HEALTH HORIZONTAL BORING MILL SET UP OPERATOR USING STDIZED CURRICULUM, [id number]-WPMR W THE PATIENT (COULD INCL CAREGIVER/FAMILY) EA 30 MIN; INDIVIDUAL PATIENT 016 DoD TELE ASSESS & MGT SRV PROV QUAL NONPHYS HLTH CARE PRO TO EST PAT,PARENT,GUARD NOT ORIG REL ASSESS & MGT SRV PROV W/IN PREV 7 DAYS NOR LEAD ASSESS & MGT SRV/PX W/IN NXT 24 HR/SOON APT;5-10 MIN MED DIS 016 DoD TELE ASSESS & MGT SRV PROV QUAL NONPHYS HLTH CARE PRO TO EST PAT,PARENT,GUARD NOT ORIG REL ASSESS & MGT SRV PROV W/IN PREV 7 DAYS NOR LEAD ASSESS & MGT SRV/PX W/IN NXT 24 HR/SOON APT;5-10 MIN MED DIS 016 [facility] SCREENING PAPANICOLAOU SMEAR; OBTAINING, PREPARING AND CONVEYANCE OF CERVICAL OR VAGINAL SMEAR TO LABORATORY 016 DoD TELE ASSESS & MGT SRV PROV QUAL NONPHYS HLTH CARE PRO TO EST PAT,PARENT,GUARD NOT ORIG REL ASSESS & MGT SRV PROV W/IN PREV 7 DAYS NOR LEAD ASSESS & MGT SRV/PX W/IN NXT 24 HR/SOON APT;5-10 MIN MED DIS 016 DoD TELE ASSESS & MGT SRV PROV QUAL NONPHYS HLTH CARE PRO TO EST PAT,PARENT,GUARD NOT ORIG REL ASSESS & MGT SRV PROV W/IN PREV 7 DAYS NOR LEAD ASSESS & MGT SRV/PX W/IN NXT 24 HR/SOON APT;5-10 MIN MED DIS 016 DoD TELE ASSESS & MGT SRV PROV QUAL NONPHYS HLTH CARE PRO TO EST PAT,PARENT,GUARD NOT ORIG REL ASSESS & MGT SRV PROV W/IN PREV 7 DAYS NOR LEAD ASSESS & MGT SRV/PX W/IN NXT 24 HR/SOON APT;5-10 MIN MED DIS 015 DoD TELE ASSESS & MGT SRV PROV QUAL NONPHYS HLTH CARE PRO TO EST PAT,PARENT,GUARD NOT ORIG REL ASSESS & MGT SRV PROV W/IN PREV 7 DAYS NOR LEAD ASSESS & MGT SRV/PX W/IN NXT 24 HR/SOON APT;5-10 MIN MED DIS 015 [facility] COLPOSCOPY OF THE CERVIX INCLUDING UPPER/ADJACENT VAGINA; WITH LOOP ELECTRODE BIOPSY(S) OF THE CERVIX 015 [facility] COLPOSCOPY OF THE CERVIX INCLUDING UPPER/ADJACENT VAGINA; WITH ENDOCERVICAL CURETTAGE 015 [facility] DISEASE MANAGEMENT PROGRAM, FOLLOW-UP/REASSESSM ENT 015 [facility] PATIENT EDUCATION, NOT OTHERWISE CLASSIFIED, NON-PHYSICIAN PROVIDER, GROUP, PER SESSION 014 [facility] MEDICAL NUTRITION THERAPY; GROUP (2 OR MORE INDIVIDUAL(S)), EACH 30 MINUTES [facility] DISEASE MANAGEMENT PROGRAM; NAVAL AIRCREWMAN HELICOPTER 014 [facility] GONADOTROPIN, CHORIONIC (HCG); QUALITATIVE [facility] CYTOPATHOLOGY, CERVICAL OR VAGINAL (ANY REPORTING SYSTEM), REQUIRING INTERPRETATION BY PHYSICIAN 013 DoD TELE ASSESS & MGT SRV PROV QUAL NONPHYS HLTH CARE PRO TO EST PAT,PARENT,GUARD NOT ORIG REL ASSESS & MGT SRV PROV W/IN PREV 7 DAYS NOR LEAD ASSESS & MGT SRV/PX W/IN NXT 24 HR/SOON APT;5-10 MIN MED DIS 012 DoD TELE ASSESS & MGT SRV PROV QUAL NONPHYS HLTH CARE PRO TO EST PAT,PARENT,GUARD NOT ORIG REL ASSESS & MGT SRV PROV W/IN PREV 7 DAYS NOR LEAD ASSESS & MGT SRV/PX W/IN NXT 24 HR/SOON APT;5-10 MIN MED DIS 012 DoD TELE ASSESS & MGT SRV PROV QUAL NONPHYS HLTH CARE PRO TO EST PAT,PARENT,GUARD NOT ORIG REL ASSESS & MGT SRV PROV W/IN PREV 7 DAYS NOR LEAD ASSESS & MGT SRV/PX W/IN NXT 24 HR/SOON APT;5-10 MIN MED DIS 012 [facility] CYTOPATHOLOGY, SMEARS, CERVICAL OR VAGINAL, UP TO THREE SMEARS; SCREENING BY CLAIMS CONSULTANT UNDER PHYSICIAN SUPERVISION 012 [facility] CYTOPATHOLOGY, SMEARS, CERVICAL OR VAGINAL, UP TO THREE SMEARS; SCREENING BY CLAIMS CONSULTANT UNDER PHYSICIAN SUPERVISION 011 DoD TELE ASSESS & MGT SRV PROV QUAL NONPHYS HLTH CARE PRO TO EST PAT,PARENT,GUARD NOT ORIG REL ASSESS & MGT SRV PROV W/IN PREV 7 DAYS NOR LEAD ASSESS & MGT SRV/PX W/IN NXT 24 HR/SOON APT;5-10 MIN MED DIS 011 DoD TELE ASSESS & MGT SRV PROV QUAL NONPHYS HLTH CARE PRO TO EST PAT,PARENT,GUARD NOT ORIG REL ASSESS & MGT SRV PROV W/IN PREV 7 DAYS NOR LEAD ASSESS & MGT SRV/PX W/IN NXT 24 HR/SOON APT;5-10 MIN MED DIS 011 DoD FITTING OF SPECTACLES, EXCEPT FOR APHAKIA; MONOFOCAL 005 DoD TETANUS AND DIPHTHERIA TOXOIDS (TD) ADSORBED WHEN ADMINISTERED TO INDIVIDUALS 7 YEARS OR OLDER, FOR INTRAMUSCULAR USE 005 [facility] SCREENING PAPANICOLAOU SMEAR; OBTAINING, PREPARING AND CONVEYANCE OF CERVICAL OR VAGINAL SMEAR TO LABORATORY 004 [facility] PURE TONE AUDIOMETRY (THRESHOLD); AIR ONLY 005 [facility] Nursing a e ment/evaluation HEIKE GUERRIER Disease management program, follow-up/wilda e ment HEIKE GUERRIER Patient Counseling Medical Management Individual Patient Patient Counseling Medical Management Individual Patient [id number] HEIKE GUERRIER Non-Physician Phone Call To Patient/Provider Brief (5-10min) Non-Physician Phone Call To Patient/Provider Brief (5-10min) [phone] ELIOT, EDDI J [facility] Non-Physician Phone Call To Pt/Provider Lengthy (21-30 min) Non-Physician Phone Call To Pt/Provider Lengthy (21-30 min) [id number] HEIKE GUERRIER Disease management program, follow-up/wilda e ment HEIKE GUERRIER Patient Counseling Medical Management Individual Patient Patient Counseling Medical Management Individual Patient [phone] HEIKE HAAS Internet Med Svc Qual Nonphys Healthcare Prof Up To 7 Days Estab Patient Internet Med Svc Qual Nonphys Healthcare Prof Up To 7 Days Estab Patient [phone] DAVEY HARDWICK [facility] Patient Counseling Medical Management Individual Patient Patient Counseling Medical Management Individual Patient [phone] HEIKE HAAS [facility] Screening papanicolaou smear; obtaining, preparing and conveyance of cervical or vaginal smear to laboratory 016 DAVE VERGARA [facility] Patient Counseling Medical Management Individual Patient Patient Counseling Medical Management Individual Patient [phone] HEIKE HAAS [facility] Non-Physician Phone Call To Patient/Provider Brief (5-10min) Non-Physician Phone Call To Patient/Provider Brief (5-10min) [phone] RENITA CORLEY [facility] Non-Physician Phone Call To Patient/Provider Brief (5-10min) Non-Physician Phone Call To Patient/Provider Brief (5-10min) [phone] THERESE MCCAIN [facility] Screening papanicolaou smear; obtaining, preparing and conveyance of cervical or vaginal smear to laboratory 016 SUJIT PERERA [facility] Non-Physician Phone Call To Patient/Provider Brief (5-10min) Non-Physician Phone Call To Patient/Provider Brief (5-10min) [phone] THAIS ROBERTS [facility] Non-Physician Phone Call To Patient/Provider Brief (5-10min) Non-Physician Phone Call To Patient/Provider Brief (5-10min) [phone] TANYA SAMANO [facility] Disease management program, follow-up/wilda e ment 016 TANYA SAMANO [facility] Non-Physician Phone Call To Patient/Provider Brief (5-10min) Non-Physician Phone Call To Patient/Provider Brief (5-10min) [phone] JOSE CRUZ FABIAN [facility] Non-Physician Phone Call To Patient/Provider Brief (5-10min) Non-Physician Phone Call To Patient/Provider Brief (5-10min) [id number] MEENAKSHI DURAN [facility] Colposcopy With Loop Electrode Excision of the Cervix Colposcopy With Loop Electrode Excision of the Cervix [id number] [id number] AUBREY JIMENEZ [facility] Colposcopy Cervix With Endocervical Curettage Colposcopy Cervix With Endocervical Curettage [id number] DAVID LE [facility] Disease management program, follow-up/wilda e ment 015 MARICARMEN UMANZOR [facility] Patient education, not otherwise cla ified, non-physician provider, group, per se ion 014 BRIDGETTE NAPOLES [facility] Medical Nutrition Therapy Group (2 or More Individuals) Each 30 Minutes Medical Nutrition Therapy Group (2 or More Individuals) Each 30 Minutes [phone] QUOC ANGEL [facility] Disease management 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; 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 013 [facility] Colpos[facility] Cervix With Biopsy Colposcopy Cervix With Biopsy [id number] ARASH SALAZAR 6 o'clcok site [facility] Urine HCG, Test Urine HCG, Test [phone] ARASH SALAZAR Negative [facility] Cervical Pap Smear Interpretation By Physician Cervical Pap Smear Interpretation By Physician [phone] [facility] Non-Physician Phone Call To Patient/Provider Brief (5-10min) Non-Physician Phone Call To Patient/Provider Brief (5-10min) [phone] CURTIS MEEHAN [facility] Non-Physician Phone Call To Patient/Provider Brief (5-10min) Non-Physician Phone Call To Patient/Provider Brief (5-10min) [phone] DEBBY JD [facility] Non-Physician Phone Call To Patient/Provider Brief (5-10min) Non-Physician Phone Call To Patient/Provider Brief (5-10min) [id number] FLACO STROUD [facility] Cervical Pap Smear Cervical Pap Smear 79948 11/08 012 ARMEN HANEY [facility] Cervical Pap Smear Cervical Pap Smear 96469 31/07 011 DEBBY JD [facility] Non-Physician Phone Call To Patient/Provider Brief (5-10min) Non-Physician Phone Call To Patient/Provider Brief (5-10min) [phone] DEBBY JD [facility] Non-Physician Phone Call To Patient/Provider Brief (5-10min) Non-Physician Phone Call To Patient/Provider Brief (5-10min) [phone] CHARLY DOWNS [facility] Threshold Audiogram (Pure Tone) Threshold Audiogram (Pure Tone) 16183 005 LEANNA LI [facility] Spectacles Services Fitting Monofocal Except For Aphakia Spectacles Services Fitting Monofocal Except For Aphakia 28937 005 WESLEY KUHN Ophthalmological New Patient Start Comprehensive Care Ophthalmological New Patient Start Comprehensive Care [phone] [facility] Visual Sterling Test Limited Examination Visual Sterling Test Limited Examination 41570 005 WESLEY KUHN Determination Of Refractive State Determination Of Refractive State 84756 005 WESLEY KUHN Td Vaccine Td Vaccine 92104 005 RASHAWN SANFORD [facility] Non-Physician Phone Call To Patient/Provider Brief (5-10min) Non-Physician Phone Call To Patient/Provider Brief (5-10min) [id number] SIGRID CHATTERJEE [facility] Waiver services; not otherwise specified (NOS) LUIS DANIEL SHORE [facility] Psychometric Emotional / Behavioral A e ment Psychometric Emotional / Behavioral Assessment [id number] MARIA EUGENIA ROBLEDO [facility] Preventive Medicine: Foot Examination Diabetic Preventive Medicine: Foot Examination Diabetic MARIA EUGENIA ROBLEDO [facility] Case Management, each 15 minutes LUCIANA MARTINEZ [facility] Disease management program, follow-up/wilda e ment GALLITO DASILVA [facility] Internet Med Svc Qual Nonphys Healthcare Prof Up To 7 Days Estab Pt 5-10 Min Internet Med Svc Qual Nonphys Healthcare Prof Up To 7 Days Estab Pt 5-10 Min [id number] SYEDA JETER [facility] Medical Nutrition Therapy Initial A e ment And Intervention Each 15 Minutes Medical Nutrition Therapy Initial Assessment And Intervention Each 15 Minutes [id number] DONALD AGUILAR [facility] Blood Glucose Fingerstick By Glucometer Blood Glucose Fingerstick By Glucometer 27003 GALLITO DASILVA Glucometer: Patient verbalized and demonstrated use of Free Style glucometer without error. BS in clinic 127 two hours after a meal. Discussed ADA goals for blood sugars- 80-130 before meals and less than 180 two hours after a meal. Patient did not have any questions and advised to call me at [phone] should she have questions. REF Lino [facility] Disease management program; initial a e ment and initiation of the program GALLITO DASILVA [facility] Disease management program, follow-up/wilda e ment GALLITO DASILVA 60 mins spent f2f [facility] Cervical Pap Smear Cervical Pap Smear [phone] MARIA EUGENIA ROBLEDO [facility] Colposcopy of the cervix including upper/adjacent vagina; with loop electrode biopsy(s) of the cervix Colposcopy of the cervix including upper/adjacent vagina; with loop electrode biopsy(s) of the cervix [id number] [place] [address] -C[address] [place] [address]-[facility] Colposcopy of the cervix including upper/adjacent vagina; with endocervical curettage Colposcopy of the cervix including upper/adjacent vagina; with endocervical curettage [address] [place], [place] [address]C-[address] [place] [address]-[facility] Foot examination performed (includes examination through visual inspection, sensory exam with monofilament, and pulse exam report when any of the three components are completed) Foot examination performed (includes examination through visual inspection, sensory exam with monofilament, and pulse exam report when any of the three components are completed) [address] [place] [address] -C[address] [place] [address]-[facility] Screening papanicolaou smear; obtaining, preparing and conveyance of cervical or vaginal smear to laboratory [address] [place] [address]-[facility] Colposcopy of the cervix including upper/adjacent vagina; with biopsy(s) of the cervix Colposcopy of the cervix including upper/adjacent vagina; with biopsy(s) of the cervix 65155 Outside Source Comment: 6 o'clcok site [address] [place] [address] -C[address] [place] [address]-[facility] Td Vaccine [facility]- -C-[facility] Social History Combined list of available smoking, tobacco, and other social history from Department of Defense and Veterans Affairs facilities. Social History Type Response Date Comment Sour e Sex Representation Female (finding) 07/31/2022 Unknown Organization This section is an empty social history section. [facility] Tobacco Never-cigarette user Cigarette use:. Never-other tobacco user (not cigarettes) Other Tobacco use:. Ambulatory Pharmacy Sexual Orientation Ambula tory Pharmacy Gender identity Ambulator y Pharmacy Assessment and Plan Combined list of future care activities from Department of Defense and Veterans Affairs facilities (e.g., assessment and plan notes, appointments, orders, and referrals). Additional future care activities may be listed in the Plan of Care section. Result Assessment and Plan Date Source Assessment and Plan Extracted from:Title : Office Clinic Note Author: MIN MUSE IVDO Date: 07/29/24 1. M ultiple nodules of lung 6 mm nodules found b/l on CTA while in hospital incidentally. No smoking hx no malignancy. Per Fleischner guideline and pt preference will repeat chest CT in 1 year to assess stability. Sooner if develops cough, weight loss, hemoptysis 2. L iver cyst M ultiple spots on liver found incidentally on CTA not well defined but probably cysts. Distant travel hx t o [place] in s. CMP in hospital WNL. Probably fatty liver vs benign cysts however need to clarify further RUQUS U/S Hepatitis panel Ordered: Hepatitis A,B,C Panel 3. S VT - Supraventricular tachycardia S table; no additional episodes; following with cardiology. Monitor in place currently. No rate control med at hospital dc 4. D iabetes mellitus D ue for eye exam and a1c Ordered: Comprehensive Metabolic Panel Hemoglobin A1c Microalbumin Level, Urine Referral Request 2.0 - DoD Orders: atorvastatin(atorvastatin 20 mg oral tablet), 1 tab(s), Oral, Daily, 2 Unknown, Unknown, 1 Refill(s), # 90 tab(s), 3 total refill(s), Maintenance, Pharmacy: [facility] [Not filled] SITagliptin-metFORMIN(Janumet XR 50 mg-1000 mg oral tablet, extended release), 2 tab(s), Oral, every evening, 90 unknown unit, 0 Refill(s), # 180 tab(s), 3 total refill(s), Maintenance, Pharmacy: [facility] [Not filled] empagliflozin(Jardiance 25 mg oral tablet), 1 tab(s), Oral, every morning, 2 Unknown, Unknown, 1 Refill(s), # 90 tab(s), 3 total refill(s), Maintenance, Pharmacy: [facility] [Not filled] losartan(losartan 25 mg oral tablet), 1 tab(s), Oral, Daily, 2 Unknown, Unknown, 1 Refill(s), # 90 tab(s), 3 total refill(s), Maintenance, Pharmacy: [facility] [Not filled] levothyroxine(Synthroid 75 mcg oral tablet), 1 tab(s), Oral, Daily, 2 Unknown, Unknown, 1 Refill(s), # 90 tab(s), 3 total refill(s), Maintenance, Pharmacy: [facility] [Not filled] venlafaxine(venlafaxine 50 mg oral tablet), 1 tab(s), Oral, BID, 2 Unknown, Unknown, 1 Refill(s), # 180 tab(s), 3 total refill(s), Maintenance, Pharmacy: [facility] [Not filled] Addendum by LEXIE CLINTON DO on August 10, 2024 14:49:01 MARBLE CUTTER OPERATOR On the date of this encounter, I was available for consultation and discussed the case with the resident face to face. I agree with the documentation above, with the following addendum: NONE. All labs/rads are the responsibility of the ordering provider. //SIGNED// Maj Lexie Orozco DO, CAQSM Sports/Family Medicine Faculty Physician [facility], [facility] [place], [place] Extracted from:Title: FM: Diabetes, HTN Author: JIAN MCDONALD MD Date: 01/04/24 1. D iabetes mellitus Chronic, controlled A1c 6.4, down from 7.9 Patient reports change to diet, overall being less stressed and feeling better R epeat A1c in 3 months due to recent up-and-down changes I f A1c in 3 months is unremarkable, can repeat next in 6 months A t next appointment, discuss d iabetic foot exam, diabetic eye exam A t next appointment, discuss RSV vaccine F ollow-up in 3 months after A1c labs 2. H ypertensive disorder Chronic, controlled Blood pressure in clinic 113/65 Medication regimen: L osartan 25 d aily C ontinue medications as prescribed F ollow-up at next annual Capt Will (), [facility], Four Slide Machine Setter, PGY-2 [facility] [place] This note was dictated using SpinGo dictation software. While it was proofread for errors, there may still be grammatical and dictation errors. Addendum by BRITTANY BRICENO DO on May 28, 2024 13:58:40 MARBLE CUTTER OPERATOR I certify that I was present for case discussion in the Family Medicine preceptor room at the time of this encounter. I have reviewed the note and agree with the findings, assessment, and plan except as I have documented below. Follow up as listed. All labs/imaging/consults to be followed by the ordering provider. DO Paul Merchant, [facility], Family Medicine-Obstetrics Physician [facility] [place], [place] Extracted from:Title: FM: HTN f/u Author: JIAN MCDONALD MD Date: 10/17/23 1. H ypertensive disorder Chronic, controlled In clinic blood pressure improved from last appointment, h ome log shows controlled blood pressures On losartan 25 mg, compliant A dvised to continue with d iet and exercise interventions N o changes to medications A dvised to i ntermittently check blood pressures, and bring to next appointment F ollow-up in 2 months, for already planned d iabetes follow-up, reminded to have A1c checked prior to appointment Capt Will (), [facility], Four Slide Machine Setter, PGY-1 [facility] [place] Addendum by ANTHONY FALCON MD on October 17, 2023 17:34:13 CDT I was present and available in the family medicine clinic during the patient's appointment.? The case was discussed with me and I agree with the assessment and plan as documented. ? HLF Extracted from:Title: Immun: PCV20 Author: ISAAC REEVES Date: 10/03/23 Adult Screening Questionnaire 1. Are you sick today? No 2. Do you have allergies to medication food, a vaccine component, or latex? Yes, see allergy section 3. Have you ever had a serious reaction after receiving a vaccination? No 4. Do you have a extermination inspector health problem with heart, lung, kidney, metabolic disease (e.g., diabetes), asthma, a blood disorder, no spleen, compliment component deficiency, a cochlear implant, or a spinal fluid leak? Yes Are you on extermination inspector aspirin therapy? No 5. Do you, or a close family member, have cancer, leukemia, HIV/AIDS, or any other immune system problems? No 6. In the past 3 months, have you taken medications, that effect your immune system, such as prednisone, other steroids, or anti-cancer drugs; drugs for treatment of Rheumatoid Arthritis, Crohn's disease, or psoriasis; or have you had radiation treatment? No 7. Have you had a seizure or a brain or other nervous system problems? No 8. During the past year, have you received a transfusion of blood or blood products, or been given immune (gamma) globulin, or an anti-viral drug? No 9. Have you received any vaccinations in the past month? No pneumococcal 20-valent conjugate vaccine: 0.5 mL (10/03/23 07:45:00) Diagnosis: 1. Vaccination given Comment: Ordered: Unlisted E&M Service [id number]; 10/03/2023 07:45:00 CDT by MAE GALLOWAY MD Other status: Prevnar 20; 0.5 mL, IntraMuscular, Suspension-Injection, Vaccine, First Dose: 10/03/2023 07:45:00 CDT, 10/03/2023 07:45:00 CDT (Completed) by MAE GALLOWAY MD Imadm Prq Id Subq/Im Njxs 1 Vaccine [id number]; 10/03/2023 07:45:00 CDT (Completed) by MAE GALLOWAY MD End of Orders More details of the vaccination administered can be found in the patient s Immunization History under the Immunizations tab. Extracted from:Title: FM: Well Adult Author: JIAN MCDONALD MD Date: 09/19/23 1. W [facility] adult Preventative Medicine / HCM visit with no emergent concerns. R efilled venlafaxine, atorvastatin ----- VACCINES: - Advised annual flu vaccine - Advised pneumococcal vaccine (age 65 or 19-64 if have r isk factors: smoking, DM, immunocompromised) - Advised COVID-19 vaccine ----- - Cervical Cancer Screening: U TD [_] Given age 21-29, if results normal will repeat in 3 years; also screened with endocervical GC/CT [_] Given age 30-65, co-tested with high risk HPV typing; if results normal will repeat with co-testing HPV in 5 years [_] Given age >65, or h/o hysterectomy, Pap not offered - Breast C ancer Screening: D UE [_] Age 40-49; initiate screening based on risk factors and shared decision making [X] Age 50-75; initiate screening and repeat q1-2 yrs per USPSTF [_] Age >75; DC screening unless life expectancy >10yrs then screening based on shared decision making - [place] Cancer Screening: N /A [_] Age 50-80 a nd 20 pack-yr smoking hx p er USPSTF - C olon Cancer Screening: U TD [_] Age > 4 5 per USPSTF ----- SEXUAL HEALTH: [_] HIV UTD [X] H epatitis C (age 1 8-79; recommendation for one-time s creening) ----- METABOLIC: - L ipid screening: U TD [_] One time screening, non-fasting (age 17-21) [_] H igh risk (HTN, smoking, DM, FHx) but normal screen before age 21: initiate screening at age 25 (men) and 35 (women): repeat q5yrs if below treatment threshold [_] N ormal screen before age 21 and no risk factors: initiate screening age 35 (men) and 45 (women); repeat q5yrs if below treatment threshold [_] D C screening at age 65 if have had multiple screenings with acceptable measures ----- SUBSTANCE USE: - T obacco use: D enies - Alcohol use: Denies - Illicit drug use: Denies ----- FOLLOW UP: - Annually Ordered: pneumococcal 13-valent conjugate vaccine(pneumococcal 13-valent conjugate vaccine), 0.5 mL, IntraMuscular, Suspension-Injection, Vaccine, First Dose: 09/19/2023 17:52:00 CDT, 09/19/2023 17:52:00 CDT HCV Antibody RFX to Quant PCR [id number] Thyroid Stimulating Hormone MG Mammo Haroldo Screening Bilateral 2. H ypertensive disorder Chronic, u ncontrolled. Pt with BP outside g oal range per J NC-8 guidelineswith goal of < 140/90. No medication side effects or concerns of non-adherence. Concern for white-coat hypertension Recommendations: - M edication Change(s): n one - Maintenance Labs: TSH - R ecommended home B P m onitoring, to bring log at next appointment R efilled losartan R efilled levothyroxine - Follow up in 1 month - Patient agrees with plan Ordered: Thyroid Stimulating Hormone 3. T ype 2 diabetes mellitus without complication Chronic, poorly controlled Most recent A1c 7 .9 P atient plans to c hange her diet, h as seen nutrition in past, declined new referral to nutrition R sebastianeck A1c in 3 months, will review labs R efilled Janumet, Jardiance P laced referral for d iabetic eye exam 58 y/o F w/ hx DMII for annual diabetic eye exam. No concerns. Prefers Dr. Jayant Mccbae at [facility], [address] [place] [address], [place], [place]. [phone]. F ollow-up in 3 months Ordered: Hemoglobin A1c Referral Request 2.0 - [facility] Orders: atorvastatin(atorvastatin 20 mg oral tablet), 1 tab(s), Oral, Daily, 2 Unknown, Unknown, 1 Refill(s), # 90 tab(s), 3 total refill(s), Maintenance, 1 tab(s) Oral Daily,Instr:2 Unknown, Unknown, 1 Refill(s), Pharmacy: [facility] [Federal Rx: #90 last filled 09/19/23] SITagliptin-metFORMIN(Janumet XR 50 mg-1000 mg oral tablet, extended release), 2 tab(s), Oral, every evening, 90 unknown unit, 0 Refill(s), # 180 tab(s), 3 total refill(s), Maintenance, 2 tab(s) Oral every evening,Instr:90 unknown unit, 0 Refill(s), Pharmacy: [facility] [Federal Rx: #180 last filled 09/19/23] empagliflozin(Jardiance 25 mg oral tablet), 1 tab(s), Oral, every morning, 2 Unknown, Unknown, 1 Refill(s), # 90 tab(s), 3 total refill(s), Maintenance, 1 tab(s) Oral every morning,Instr:2 Unknown, Unknown, 1 Refill(s), Pharmacy: [facility] [Federal Rx: #90 last filled 09/19/23] losartan(losartan 25 mg oral tablet), 1 tab(s), Oral, Daily, 2 Unknown, Unknown, 1 Refill(s), # 90 tab(s), 3 total refill(s), Maintenance, 1 tab(s) Oral Daily,Instr:2 Unknown, Unknown, 1 Refill(s), Pharmacy: [facility] [Federal Rx: #90 last filled 09/19/23] levothyroxine(Synthroid 75 mcg oral tablet), 1 tab(s), Oral, Daily, 2 Unknown, Unknown, 1 Refill(s), # 90 tab(s), 3 total refill(s), Maintenance, 1 tab(s) Oral Daily,Instr:2 Unknown, Unknown, 1 Refill(s), Pharmacy: [facility] [Federal Rx: #90 last filled 09/19/23] venlafaxine(venlafaxine 50 mg oral tablet), 1 tab(s), Oral, BID, 2 Unknown, Unknown, 1 Refill(s), # 180 tab(s), 3 total refill(s), Maintenance, 1 tab(s) Oral BID,Instr:2 Unknown, Unknown, 1 Refill(s), Pharmacy: [facility] [Federal Rx: #180 last filled 09/19/23] Capt Will (), [facility] Four Slide Machine Setter, PGY-1 [facility] [place] Addendum by MARGARET HERNANDEZ MD on September 22, 2023 10:03:44 CDT I certify that I was present for case discussion in the Family Medicine preceptor room at the time of this encounter. I have reviewed the note and agree with the findings, assessment, and plan except as I have documented below. Follow up as listed. All labs/imaging/consults to be followed by the ordering provider. Capt Palma Reid) Family Medicine Physician [facility] [place], [place] Extracted from:Title: FMR-Nose Fracture F/u Author: RAMIREZ PIERRE MD Date: 05/21/23 1. F ractured nose Acute; improved. Fell last week, XR non-displaced fracture of nasal bone. No cartilage noted, no deviation, no further episodes of bloody nose. Plan: - Rest, Ice, maintain head elevation - Re-advised the use of OTC tylenol/motrin prn for pain - for breakthrough pain may use tramadol given from Urgent care - Advised t o stop taking A ntibiotic from urgent care. - N o F/u needed u nless develops fever/notice pus drainage Capt Ramirez Pierre DO PGY-1 Four Slide Machine Setter [facility] [address]/[place], [place] Addendum by TRACEY BRASWELL DO on May 21, 2023 08:36:23 MARBLE CUTTER OPERATOR I certify that I was physically present with the resident and patient. I have discussed the diagnosis and treatment plan with the resident [id number]. I have reviewed the note and concur with the findings, assessment, and plan. Follow up as listed. All labs/imaging/consults to be followed by the ordering provider. Capt Stevie, [facility], Staff Physician Extracted from:Title: FMR- Nasal fracture Author: RAMIREZ PIERRE MD Date: 05/15/23 1. F racture of nasal bones Acute. Fell today, XR non-displaced fracture of nasal bone. No cartilage noted, no deviation. Plan: - Rest, Ice, maintain head elevation - May u se OTC tylenol/motrin prn for pain - for breakthrough pain may use tramadol given from Urgent care - Advised not to take Antibiotic from urgent care unless develops fever/notice pus drainage - since non-displaced no cast/splint needed - no referral needed to ENT at this time - f/u in 1week to make sure healing well Capt Ramirez Pierre DO PGY-1 Four Slide Machine Setter [facility] [address]/[facility] [place], [place] Addendum by DAVID CHASE MD on May 15, 2023 17:06:57 MARBLE CUTTER OPERATOR I certify that I examined and discussed this patient with the resident at the time of the visit.? I agree with these written findings and plan. Capt David Chase DO, CAM Sports/Family Medicine Faculty Physician [facility], [facility] [place], [place] Future Scheduled TestsLaboratoryHemoglobin A1c 04/03/24Microalbumin Panel, Urine 08/06/24 11/06/2024 [id number] [place] [address] Assessment and Plan Extracted from:Title : Office Clinic Note Author: MIN MUSE IV, Date: 07/29/24 1. M ultiple nodules of lung 6 mm nodules found b/l on CTA while in hospital incidentally. No smoking hx no malignancy. Per Fleischner guideline and pt preference will repeat chest CT in 1 year to assess stability. Sooner if develops cough, weight loss, hemoptysis 2. L iver cyst M ultiple spots on liver found incidentally on CTA not well defined but probably cysts. Distant travel hx t o [place] in s. CMP in hospital WNL. Probably fatty liver vs benign cysts however need to clarify further RUQUS U/S Hepatitis panel Ordered: Hepatitis A,B,C Panel 3. S VT - Supraventricular tachycardia S table; no additional episodes; following with cardiology. Monitor in place currently. No rate control med at hospital dc 4. D iabetes mellitus D ue for eye exam and a1c Ordered: Comprehensive Metabolic Panel Hemoglobin A1c Microalbumin Level, Urine Referral Request 2.0 - [facility] Orders: atorvastatin(atorvastatin 20 mg oral tablet), 1 tab(s), Oral, Daily, 2 Unknown, Unknown, 1 Refill(s), # 90 tab(s), 3 total refill(s), Maintenance, Pharmacy: [facility] [Not filled] SITagliptin-metFORMIN(Janumet XR 50 mg-1000 mg oral tablet, extended release), 2 tab(s), Oral, every evening, 90 unknown unit, 0 Refill(s), # 180 tab(s), 3 total refill(s), Maintenance, Pharmacy: [facility] [Not filled] empagliflozin(Jardiance 25 mg oral tablet), 1 tab(s), Oral, every morning, 2 Unknown, Unknown, 1 Refill(s), # 90 tab(s), 3 total refill(s), Maintenance, Pharmacy: [facility] [Not filled] losartan(losartan 25 mg oral tablet), 1 tab(s), Oral, Daily, 2 Unknown, Unknown, 1 Refill(s), # 90 tab(s), 3 total refill(s), Maintenance, Pharmacy: [facility] [Not filled] levothyroxine(Synthroid 75 mcg oral tablet), 1 tab(s), Oral, Daily, 2 Unknown, Unknown, 1 Refill(s), # 90 tab(s), 3 total refill(s), Maintenance, Pharmacy: [facility] [Not filled] venlafaxine(venlafaxine 50 mg oral tablet), 1 tab(s), Oral, BID, 2 Unknown, Unknown, 1 Refill(s), # 180 tab(s), 3 total refill(s), Maintenance, Pharmacy: [facility] [Not filled] Addendum by LEXIE CLINTON DO on August 10, 2024 14:49:01 MARBLE CUTTER OPERATOR On the date of this encounter, I was available for consultation and discussed the case with the resident face to face. I agree with the documentation above, with the following addendum: NONE. All labs/rads are the responsibility of the ordering provider. //SIGNED// Maj Lexie Orozco DO, CAQSM Sports/Family Medicine Faculty Physician [facility], [facility] [place], [place] Extracted from:Title: FM: Diabetes, HTN Author: JIAN MCDONALD MD Date: 01/04/24 1. D iabetes mellitus Chronic, controlled A1c 6.4, down from 7.9 Patient reports change to diet, overall being less stressed and feeling better R epeat A1c in 3 months due to recent up-and-down changes I f A1c in 3 months is unremarkable, can repeat next in 6 months A t next appointment, discuss d iabetic foot exam, diabetic eye exam A t next appointment, discuss RSV vaccine F ollow-up in 3 months after A1c labs 2. H ypertensive disorder Chronic, controlled Blood pressure in clinic 113/65 Medication regimen: L osartan 25 d aily C ontinue medications as prescribed F ollow-up at next annual Capt Will (), [facility], Four Slide Machine Setter, PGY-2 [facility] [place] This note was dictated using SpinGo dictation software. While it was proofread for errors, there may still be grammatical and dictation errors. Addendum by BRITTANY BRICENO DO on May 28, 2024 13:58:40 MARBLE CUTTER OPERATOR I certify that I was present for case discussion in the Family Medicine preceptor room at the time of this encounter. I have reviewed the note and agree with the findings, assessment, and plan except as I have documented below. Follow up as listed. All labs/imaging/consults to be followed by the ordering provider. DO Paul Merchant, [facility], Family Medicine-Obstetrics Physician [facility] [place], [place] Extracted from:Title: FM: HTN f/u Author: JIAN MCDONALD MD Date: 10/17/23 1. H ypertensive disorder Chronic, controlled In clinic blood pressure improved from last appointment, h ome log shows controlled blood pressures On losartan 25 mg, compliant A dvised to continue with d iet and exercise interventions N o changes to medications A dvised to i ntermittently check blood pressures, and bring to next appointment F ollow-up in 2 months, for already planned d iabetes follow-up, reminded to have A1c checked prior to appointment Capt Will (), [facility] Four Slide Machine Setter, PGY-1 [facility] [place] Addendum by ANTHONY FALCON MD on October 17, 2023 17:34:13 CDT I was present and available in the family medicine clinic during the patient's appointment.? The case was discussed with me and I agree with the assessment and plan as documented. ? HLF Extracted from:Title: Immun: PCV20 Author: ISAAC REEVES Date: 10/03/23 Adult Screening Questionnaire 1. Are you sick today? No 2. Do you have allergies to medication food, a vaccine component, or latex? Yes, see allergy section 3. Have you ever had a serious reaction after receiving a vaccination? No 4. Do you have a nursing home health problem with heart, lung, kidney, metabolic disease (e.g., diabetes), asthma, a blood disorder, no spleen, compliment component deficiency, a cochlear implant, or a spinal fluid leak? Yes Are you on nursing home aspirin therapy? No 5. Do you, or a close family member, have cancer, leukemia, HIV/AIDS, or any other immune system problems? No 6. In the past 3 months, have you taken medications, that effect your immune system, such as prednisone, other steroids, or anti-cancer drugs; drugs for treatment of Rheumatoid Arthritis, Crohn's disease, or psoriasis; or have you had radiation treatment? No 7. Have you had a seizure or a brain or other nervous system problems? No 8. During the past year, have you received a transfusion of blood or blood products, or been given immune (gamma) globulin, or an anti-viral drug? No 9. Have you received any vaccinations in the past month? No pneumococcal 20-valent conjugate vaccine: 0.5 mL (10/03/23 07:45:00) Diagnosis: 1. Vaccination given Comment: Ordered: Unlisted E&M Service [id number]; 10/03/2023 07:45:00 CDT by MAE GALLOWAY MD Other status: Prevnar 20; 0.5 mL, IntraMuscular, Suspension-Injection, Vaccine, First Dose: 10/03/2023 07:45:00 CDT, 10/03/2023 07:45:00 CDT (Completed) by MAE GALLOWAY MD Imadm Prq Id Subq/Im Njxs 1 Vaccine [id number]; 10/03/2023 07:45:00 CDT (Completed) by MAE GALLOWAY MD End of Orders More details of the vaccination administered can be found in the patient s Immunization History under the Immunizations tab. Extracted from:Title: FM: Well Adult Author: JIAN MCDONALD MD Date: 09/19/23 1. W ell adult Preventative Medicine / [facility] visit with no emergent concerns. R efilled venlafaxine, atorvastatin ----- VACCINES: - Advised annual flu vaccine - Advised pneumococcal vaccine (age 65 or 19-64 if have r isk factors: smoking, DM, immunocompromised) - Advised COVID-19 vaccine ----- - Cervical Cancer Screening: U TD [_] Given age 21-29, if results normal will repeat in 3 years; also screened with endocervical GC/CT [_] Given age 30-65, co-tested with high risk HPV typing; if results normal will repeat with co-testing HPV in 5 years [_] Given age >65, or h/o hysterectomy, Pap not offered - Breast C ancer Screening: D UE [_] Age 40-49; initiate screening based on risk factors and shared decision making [X] Age 50-75; initiate screening and repeat q1-2 yrs per USPSTF [_] Age >75; DC screening unless life expectancy >10yrs then screening based on shared decision making - [place] Cancer Screening: N /A [_] Age 50-80 a nd 20 pack-yr smoking hx p er USPSTF - C olon Cancer Screening: U TD [_] Age > 4 5 per USPSTF ----- SEXUAL HEALTH: [_] HIV UTD [X] H epatitis C (age 1 8-79; recommendation for one-time s creening) ----- METABOLIC: - L ipid screening: U TD [_] One time screening, non-fasting (age 17-21) [_] H igh risk (HTN, smoking, DM, FHx) but normal screen before age 21: initiate screening at age 25 (men) and 35 (women): repeat q5yrs if below treatment threshold [_] N ormal screen before age 21 and no risk factors: initiate screening age 35 (men) and 45 (women); repeat q5yrs if below treatment threshold [_] D C screening at age 65 if have had multiple screenings with acceptable measures ----- SUBSTANCE USE: - T obacco use: D enies - Alcohol use: Denies - Illicit drug use: Denies ----- FOLLOW UP: - Annually Ordered: pneumococcal 13-valent conjugate vaccine(pneumococcal 13-valent conjugate vaccine), 0.5 mL, IntraMuscular, Suspension-Injection, Vaccine, First Dose: 09/19/2023 17:52:00 CDT, 09/19/2023 17:52:00 CDT HCV Antibody RFX to Quant PCR [id number] Thyroid Stimulating Hormone MG Mammo Haroldo Screening Bilateral 2. H ypertensive disorder Chronic, u ncontrolled. Pt with BP outside g oal range per J NC-8 guidelineswith goal of < 140/90. No medication side effects or concerns of non-adherence. Concern for white-coat hypertension Recommendations: - M edication Change(s): n one - Maintenance Labs: TSH - R ecommended home B P m onitoring, to bring log at next appointment R efilled losartan R efilled levothyroxine - Follow up in 1 month - Patient agrees with plan Ordered: Thyroid Stimulating Hormone 3. T ype 2 diabetes mellitus without complication Chronic, poorly controlled Most recent A1c 7 .9 P atient plans to c hange her diet, h as seen nutrition in past, declined new referral to nutrition R sebastianeck A1c in 3 months, will review labs R efilled Sushilat, Darenance P laced referral for d iabetic eye exam 58 y/o F w/ hx DMII for annual diabetic eye exam. No concerns. Prefers Dr. Jayant Mccabe at [facility], [address] [place] [address], [place], [place]. [phone]. F ollow-up in 3 months Ordered: Hemoglobin A1c Referral Request 2.0 - [facility] Orders: atorvastatin(atorvastatin 20 mg oral tablet), 1 tab(s), Oral, Daily, 2 Unknown, Unknown, 1 Refill(s), # 90 tab(s), 3 total refill(s), Maintenance, 1 tab(s) Oral Daily,Instr:2 Unknown, Unknown, 1 Refill(s), Pharmacy: [facility] [Federal Rx: #90 last filled 09/19/23] SITagliptin-metFORMIN(Janumet XR 50 mg-1000 mg oral tablet, extended release), 2 tab(s), Oral, every evening, 90 unknown unit, 0 Refill(s), # 180 tab(s), 3 total refill(s), Maintenance, 2 tab(s) Oral every evening,Instr:90 unknown unit, 0 Refill(s), Pharmacy: [facility] [Federal Rx: #180 last filled 09/19/23] empagliflozin(Jardiance 25 mg oral tablet), 1 tab(s), Oral, every morning, 2 Unknown, Unknown, 1 Refill(s), # 90 tab(s), 3 total refill(s), Maintenance, 1 tab(s) Oral every morning,Instr:2 Unknown, Unknown, 1 Refill(s), Pharmacy: [facility] [Federal Rx: #90 last filled 09/19/23] losartan(losartan 25 mg oral tablet), 1 tab(s), Oral, Daily, 2 Unknown, Unknown, 1 Refill(s), # 90 tab(s), 3 total refill(s), Maintenance, 1 tab(s) Oral Daily,Instr:2 Unknown, Unknown, 1 Refill(s), Pharmacy: [facility] [Federal Rx: #90 last filled 09/19/23] levothyroxine(Synthroid 75 mcg oral tablet), 1 tab(s), Oral, Daily, 2 Unknown, Unknown, 1 Refill(s), # 90 tab(s), 3 total refill(s), Maintenance, 1 tab(s) Oral Daily,Instr:2 Unknown, Unknown, 1 Refill(s), Pharmacy: [facility] [Federal Rx: #90 last filled 09/19/23] venlafaxine(venlafaxine 50 mg oral tablet), 1 tab(s), Oral, BID, 2 Unknown, Unknown, 1 Refill(s), # 180 tab(s), 3 total refill(s), Maintenance, 1 tab(s) Oral BID,Instr:2 Unknown, Unknown, 1 Refill(s), Pharmacy: [facility] [Federal Rx: #180 last filled 09/19/23] Capt Will (), [facility] Four Slide Machine Setter, PGY-1 [facility] [place] Addendum by MARGARET HERNANDEZ MD on September 22, 2023 10:03:44 CDT I certify that I was present for case discussion in the Family Medicine preceptor room at the time of this encounter. I have reviewed the note and agree with the findings, assessment, and plan except as I have documented below. Follow up as listed. All labs/imaging/consults to be followed by the ordering provider. Capt Palma Reid) Family Medicine Physician [facility] [place], [place] Extracted from:Title: FMR-Nose Fracture F/u Author: RAMIREZ PIERRE MD Date: 05/21/23 1. F ractured nose Acute; improved. Fell last week, XR non-displaced fracture of nasal bone. No cartilage noted, no deviation, no further episodes of bloody nose. Plan: - Rest, Ice, maintain head elevation - Re-advised the use of OTC tylenol/motrin prn for pain - for breakthrough pain may use tramadol given from Urgent care - Advised t o stop taking A ntibiotic from urgent care. - N o F/u needed u nless develops fever/notice pus drainage Capt Ramirez Pierre DO PGY-1 Four Slide Machine Setter [facility] [address] [place] [address]/[place], [place] Addendum by TRACEY BRASWELL DO on May 21, 2023 08:36:23 MARBLE CUTTER OPERATOR I certify that I was physically present with the resident and patient. I have discussed the diagnosis and treatment plan with the resident [id number]. I have reviewed the note and concur with the findings, assessment, and plan. Follow up as listed. All labs/imaging/consults to be followed by the ordering provider. Capt Stevie, [facility], Staff Physician Extracted from:Title: FMR- Nasal fracture Author: RAMIREZ PIERRE MD Date: 05/15/23 1. F racture of nasal bones Acute. Fell today, XR non-displaced fracture of nasal bone. No cartilage noted, no deviation. Plan: - Rest, Ice, maintain head elevation - May u se OTC tylenol/motrin prn for pain - for breakthrough pain may use tramadol given from Urgent care - Advised not to take Antibiotic from urgent care unless develops fever/notice pus drainage - since non-displaced no cast/splint needed - no referral needed to ENT at this time - f/u in 1week to make sure healing well Capt Ramirez Pierre DO PGY-1 Four Slide Machine Setter [facility] [address]/[place], [place] Addendum by DAVID CHASE MD on May 15, 2023 17:06:57 MARBLE CUTTER OPERATOR I certify that I examined and discussed this patient with the resident at the time of the visit.? I agree with these written findings and plan. Capt David Chase DO, CAM Sports/Family Medicine Faculty Physician [facility], [facility] [place], [place] Future Scheduled TestsLaboratoryHemoglobin A1c 04/03/24Microalbumin Panel, Urine 08/06/24 11/06/2024 [id number] [place] [address] Assessment and Plan Extracted from:Title : Office Clinic Note Author: MIN MUSE IV, DO Date: 07/29/24 1. M ultiple nodules of lung 6 mm nodules found b/l on CTA while in hospital incidentally. No smoking hx no malignancy. Per Fleischner guideline and pt preference will repeat chest CT in 1 year to assess stability. Sooner if develops cough, weight loss, hemoptysis 2. L iver cyst M ultiple spots on liver found incidentally on CTA not well defined but probably cysts. Distant travel hx t o [place] in . CMP in hospital WNL. Probably fatty liver vs benign cysts however need to clarify further RUQUS U/S Hepatitis panel Ordered: Hepatitis A,B,C Panel 3. S VT - Supraventricular tachycardia S table; no additional episodes; following with cardiology. Monitor in place currently. No rate control med at hospital dc 4. D iabetes mellitus D ue for eye exam and a1c Ordered: Comprehensive Metabolic Panel Hemoglobin A1c Microalbumin Level, Urine Referral Request 2.0 - [facility] Orders: atorvastatin(atorvastatin 20 mg oral tablet), 1 tab(s), Oral, Daily, 2 Unknown, Unknown, 1 Refill(s), # 90 tab(s), 3 total refill(s), Maintenance, Pharmacy: [facility] [Not filled] SITagliptin-metFORMIN(Janumet XR 50 mg-1000 mg oral tablet, extended release), 2 tab(s), Oral, every evening, 90 unknown unit, 0 Refill(s), # 180 tab(s), 3 total refill(s), Maintenance, Pharmacy: [facility] [Not filled] empagliflozin(Jardiance 25 mg oral tablet), 1 tab(s), Oral, every morning, 2 Unknown, Unknown, 1 Refill(s), # 90 tab(s), 3 total refill(s), Maintenance, Pharmacy: [facility] [Not filled] losartan(losartan 25 mg oral tablet), 1 tab(s), Oral, Daily, 2 Unknown, Unknown, 1 Refill(s), # 90 tab(s), 3 total refill(s), Maintenance, Pharmacy: [facility] [Not filled] levothyroxine(Synthroid 75 mcg oral tablet), 1 tab(s), Oral, Daily, 2 Unknown, Unknown, 1 Refill(s), # 90 tab(s), 3 total refill(s), Maintenance, Pharmacy: [facility] [Not filled] venlafaxine(venlafaxine 50 mg oral tablet), 1 tab(s), Oral, BID, 2 Unknown, Unknown, 1 Refill(s), # 180 tab(s), 3 total refill(s), Maintenance, Pharmacy: [facility] [Not filled] Addendum by LEXIE CLINTON DO on August 10, 2024 14:49:01 MARBLE CUTTER OPERATOR On the date of this encounter, I was available for consultation and discussed the case with the resident face to face. I agree with the documentation above, with the following addendum: NONE. All labs/rads are the responsibility of the ordering provider. //SIGNED// Maj Lexie Orozco DO, CAQSM Sports/Family Medicine Faculty Physician [employer], HCOS/SGGF O [facility] [place], [place] Extracted from:Title: FM: Diabetes, HTN Author: JIAN MCDONALD MD Date: 01/04/24 1. D iabetes mellitus Chronic, controlled A1c 6.4, down from 7.9 Patient reports change to diet, overall being less stressed and feeling better R epeat A1c in 3 months due to recent up-and-down changes I f A1c in 3 months is unremarkable, can repeat next in 6 months A t next appointment, discuss d iabetic foot exam, diabetic eye exam A t next appointment, discuss RSV vaccine F ollow-up in 3 months after A1c labs 2. H ypertensive disorder Chronic, controlled Blood pressure in clinic 113/65 Medication regimen: L osartan 25 d aily C ontinue medications as prescribed F ollow-up at next annual Capt Will (), [facility] Four Slide Machine Setter, PGY-[address] [place] [address]/[facility] [place] This note was dictated using SpinGo dictation software. While it was proofread for errors, there may still be grammatical and dictation errors. Addendum by BRITTANY BRICENO DO on May 28, 2024 13:58:40 MARBLE CUTTER OPERATOR I certify that I was present for case discussion in the Family Medicine preceptor room at the time of this encounter. I have reviewed the note and agree with the findings, assessment, and plan except as I have documented below. Follow up as listed. All labs/imaging/consults to be followed by the ordering provider. DO Paul Merchant [facility] Family Medicine-Obstetrics Physician [facility] [place], [place] Extracted from:Title: FM: HTN f/u Author: JIAN MCDONALD MD Date: 10/17/23 1. H ypertensive disorder Chronic, controlled In clinic blood pressure improved from last appointment, h ome log shows controlled blood pressures On losartan 25 mg, compliant A dvised to continue with d iet and exercise interventions N o changes to medications A dvised to i ntermittently check blood pressures, and bring to next appointment F ollow-up in 2 months, for already planned d iabetes follow-up, reminded to have A1c checked prior to appointment Capt Will (), [facility], Four Slide Machine Setter, PGY-1 [facility] [place] Addendum by ANTHONY FALCON MD on October 17, 2023 17:34:13 CDT I was present and available in the family medicine clinic during the patient's appointment.? The case was discussed with me and I agree with the assessment and plan as documented. ? HLF Extracted from:Title: Immun: PCV20 Author: ISAAC REEVES Date: 10/03/23 Adult Screening Questionnaire 1. Are you sick today? No 2. Do you have allergies to medication food, a vaccine component, or latex? Yes, see allergy section 3. Have you ever had a serious reaction after receiving a vaccination? No 4. Do you have a extermination inspector health problem with heart, lung, kidney, metabolic disease (e.g., diabetes), asthma, a blood disorder, no spleen, compliment component deficiency, a cochlear implant, or a spinal fluid leak? Yes Are you on nursing home aspirin therapy? No 5. Do you, or a close family member, have cancer, leukemia, HIV/AIDS, or any other immune system problems? No 6. In the past 3 months, have you taken medications, that effect your immune system, such as prednisone, other steroids, or anti-cancer drugs; drugs for treatment of Rheumatoid Arthritis, Crohn's disease, or psoriasis; or have you had radiation treatment? No 7. Have you had a seizure or a brain or other nervous system problems? No 8. During the past year, have you received a transfusion of blood or blood products, or been given immune (gamma) globulin, or an anti-viral drug? No 9. Have you received any vaccinations in the past month? No pneumococcal 20-valent conjugate vaccine: 0.5 mL (10/03/23 07:45:00) Diagnosis: 1. Vaccination given Comment: Ordered: Unlisted E&M Service [id number]; 10/03/2023 07:45:00 CDT by MAE GALLOWAY MD Other status: Prevnar 20; 0.5 mL, IntraMuscular, Suspension-Injection, Vaccine, First Dose: 10/03/2023 07:45:00 CDT, 10/03/2023 07:45:00 CDT (Completed) by MAE GALLOWAY MD Imadm Prq Id Subq/Im Njxs 1 Vaccine [id number]; 10/03/2023 07:45:00 CDT (Completed) by MAE GALLOWAY MD End of Orders More details of the vaccination administered can be found in the patient s Immunization History under the Immunizations tab. Extracted from:Title: FM: Well Adult Author: JIAN MCDONALD MD Date: 09/19/23 1. W ell adult Preventative Medicine / HCM visit with no emergent concerns. R efilled venlafaxine, atorvastatin ----- VACCINES: - Advised annual flu vaccine - Advised pneumococcal vaccine (age 65 or 19-64 if have r isk factors: smoking, DM, immunocompromised) - Advised COVID-19 vaccine ----- - Cervical Cancer Screening: U TD [_] Given age 21-29, if results normal will repeat in 3 years; also screened with endocervical GC/CT [_] Given age 30-65, co-tested with high risk HPV typing; if results normal will repeat with co-testing HPV in 5 years [_] Given age >65, or h/o hysterectomy, Pap not offered - Breast C ancer Screening: D UE [_] Age 40-49; initiate screening based on risk factors and shared decision making [X] Age 50-75; initiate screening and repeat q1-2 yrs per USPSTF [_] Age >75; DC screening unless life expectancy >10yrs then screening based on shared decision making - [place] Cancer Screening: N /A [_] Age 50-80 a nd 20 pack-yr smoking hx p er USPSTF - C olon Cancer Screening: U TD [_] Age > 4 5 per USPSTF ----- SEXUAL HEALTH: [_] HIV UTD [X] H epatitis C (age 1 8-79; recommendation for one-time s creening) ----- METABOLIC: - L ipid screening: U TD [_] One time screening, non-fasting (age 17-21) [_] H igh risk (HTN, smoking, DM, FHx) but normal screen before age 21: initiate screening at age 25 (men) and 35 (women): repeat q5yrs if below treatment threshold [_] N ormal screen before age 21 and no risk factors: initiate screening age 35 (men) and 45 (women); repeat q5yrs if below treatment threshold [_] D C screening at age 65 if have had multiple screenings with acceptable measures ----- SUBSTANCE USE: - T obacco use: D enies - Alcohol use: Denies - Illicit drug use: Denies ----- FOLLOW UP: - Annually Ordered: pneumococcal 13-valent conjugate vaccine(pneumococcal 13-valent conjugate vaccine), 0.5 mL, IntraMuscular, Suspension-Injection, Vaccine, First Dose: 09/19/2023 17:52:00 CDT, 09/19/2023 17:52:00 CDT HCV Antibody RFX to Quant PCR [id number] Thyroid Stimulating Hormone MG Mammo Haroldo Screening Bilateral 2. H ypertensive disorder Chronic, u ncontrolled. Pt with BP outside g oal range per J [place]-8 guidelineswith goal of < 140/90. No medication side effects or concerns of non-adherence. Concern for white-coat hypertension Recommendations: - M edication Change(s): n one - Maintenance Labs: TSH - R ecommended home B P m onitoring, to bring log at next appointment R efilled losartan R efilled levothyroxine - Follow up in 1 month - Patient agrees with plan Ordered: Thyroid Stimulating Hormone 3. T ype 2 diabetes mellitus without complication Chronic, poorly controlled Most recent A1c 7 .9 P atient plans to c hange her diet, h as seen nutrition in past, declined new referral to nutrition R echeck A1c in 3 months, will review labs R efilled Shahida Ferris referral for d iabetic eye exam 58 y/o F w/ hx DMII for annual diabetic eye exam. No concerns. Prefers Dr. Jayant Mccabe at [facility], [address] [place] [address], [place], [place]. [phone]. F ollow-up in 3 months Ordered: Hemoglobin A1c Referral Request 2.0 - [facility] Orders: atorvastatin(atorvastatin 20 mg oral tablet), 1 tab(s), Oral, Daily, 2 Unknown, Unknown, 1 Refill(s), # 90 tab(s), 3 total refill(s), Maintenance, 1 tab(s) Oral Daily,Instr:2 Unknown, Unknown, 1 Refill(s), Pharmacy: [facility] [Federal Rx: #90 last filled 09/19/23] SITagliptin-metFORMIN(Janumet XR 50 mg-1000 mg oral tablet, extended release), 2 tab(s), Oral, every evening, 90 unknown unit, 0 Refill(s), # 180 tab(s), 3 total refill(s), Maintenance, 2 tab(s) Oral every evening,Instr:90 unknown unit, 0 Refill(s), Pharmacy: [facility] [Federal Rx: #180 last filled 09/19/23] empagliflozin(Jardiance 25 mg oral tablet), 1 tab(s), Oral, every morning, 2 Unknown, Unknown, 1 Refill(s), # 90 tab(s), 3 total refill(s), Maintenance, 1 tab(s) Oral every morning,Instr:2 Unknown, Unknown, 1 Refill(s), Pharmacy: [facility] [Federal Rx: #90 last filled 09/19/23] losartan(losartan 25 mg oral tablet), 1 tab(s), Oral, Daily, 2 Unknown, Unknown, 1 Refill(s), # 90 tab(s), 3 total refill(s), Maintenance, 1 tab(s) Oral Daily,Instr:2 Unknown, Unknown, 1 Refill(s), Pharmacy: [facility] [Federal Rx: #90 last filled 09/19/23] levothyroxine(Synthroid 75 mcg oral tablet), 1 tab(s), Oral, Daily, 2 Unknown, Unknown, 1 Refill(s), # 90 tab(s), 3 total refill(s), Maintenance, 1 tab(s) Oral Daily,Instr:2 Unknown, Unknown, 1 Refill(s), Pharmacy: [facility] [Federal Rx: #90 last filled 09/19/23] venlafaxine(venlafaxine 50 mg oral tablet), 1 tab(s), Oral, BID, 2 Unknown, Unknown, 1 Refill(s), # 180 tab(s), 3 total refill(s), Maintenance, 1 tab(s) Oral BID,Instr:2 Unknown, Unknown, 1 Refill(s), Pharmacy: [facility] [Federal Rx: #180 last filled 09/19/23] Capt Will (), [facility] Four Slide Machine Setter, PGY-1 [facility] [place] Addendum by MARGARET HERNANDEZ MD on September 22, 2023 10:03:44 CDT I certify that I was present for case discussion in the Family Medicine preceptor room at the time of this encounter. I have reviewed the note and agree with the findings, assessment, and plan except as I have documented below. Follow up as listed. All labs/imaging/consults to be followed by the ordering provider. Capt Franklin () Family Medicine Physician [facility] BEN[place] Extracted from:Title: FMR-Nose Fracture F/u Author: RAMIREZ PIERRE MD Date: 05/21/23 1. F ractured nose Acute; improved. Fell last week, XR non-displaced fracture of nasal bone. No cartilage noted, no deviation, no further episodes of bloody nose. Plan: - Rest, Ice, maintain head elevation - Re-advised the use of OTC tylenol/motrin prn for pain - for breakthrough pain may use tramadol given from Urgent care - Advised t o stop taking A ntibiotic from urgent care. - N o F/u needed u nless develops fever/notice pus drainage Capt Ramirez Pierre DO PGY-1 Four Slide Machine Setter [facility] [place] Addendum by TRACEY BRASWELL DO on May 21, 2023 08:36:23 MARBLE CUTTER OPERATOR I certify that I was physically present with the resident and patient. I have discussed the diagnosis and treatment plan with the resident [id number]. I have reviewed the note and concur with the findings, assessment, and plan. Follow up as listed. All labs/imaging/consults to be followed by the ordering provider. Capt Stevie, [facility], Staff Physician Extracted from:Title: FMR- Nasal fracture Author: RAMIREZ PIERRE MD Date: 05/15/23 1. F racture of nasal bones Acute. Fell today, XR non-displaced fracture of nasal bone. No cartilage noted, no deviation. Plan: - Rest, Ice, maintain head elevation - May u se OTC tylenol/motrin prn for pain - for breakthrough pain may use tramadol given from Urgent care - Advised not to take Antibiotic from urgent care unless develops fever/notice pus drainage - since non-displaced no cast/splint needed - no referral needed to ENT at this time - f/u in 1week to make sure healing well Capt Ramirez Pierre DO PGY-1 Four Slide Machine Setter [facility] [address] [place] [address]/[place], [place] Addendum by DAVID CHASE MD on May 15, 2023 17:06:57 MARBLE CUTTER OPERATOR I certify that I examined and discussed this patient with the resident at the time of the visit.? I agree with these written findings and plan. Capt David Chase DO, CAQSM Sports/Family Medicine Faculty Physician [address] [place] [address], [facility] [place], [place] Future Scheduled TestsLaboratoryHemoglobin A1c 04/03/24Microalbumin Panel, Urine 08/06/24 11/06/2024 Unknown Organization Functional Status Combined list of recent functional and cognitive assessments recorded at [facility] [employer] [facility] [employer] [facility] Functional [place] Measurement (FIM) Scale: 1 = Total Assistance (Subject = 0% +), 2 = Maximal Assistance (Subject = 25% +), 3 = Moderate Assistance (Subject = 50% +), 4 = Minimal Assistance (Subject = 75% +), 5 = Supervision, 6 = Modified [place] (Device), 7 = Complete [place] (Timely, Safely). Assessment Date/Time Source Assessment Type Assessment Skill Assessment Score Assessment Details No data available for this section
[2024-11-06 17:51] VITALS: BP 196/92; PULSE 85; RESP 18; TEMP 36.2; O2SAT 100
== END 2024-11-06 18:09 | disposition home or self-care (01) ==
PROVIDERS: Emergency Provider Nurse Practitioner Family
DX: T21.12XA Burn of first degree of abdominal wall, initial encounter (principal); T22.111A Burn of first degree of right forearm, initial encounter; T22.112A Burn of first degree of left forearm, initial encounter; T31.0 Burns involving less than 10% of body surface; E11.9 Type 2 diabetes mellitus without complications; E03.9 Hypothyroidism, unspecified; X08.8XXA Exposure to other specified smoke, fire and flames, initial encounter
CPT/HCPCS: 16000; 99213; A9270; G0463